=== PATIENT | female | born 1960 | race Caucasian/White ===

== ENCOUNTER 2024-07-29 21:46 | Emergency (ER) | payer OTHER, SELFPAY ==
[2024-07-29 21:50] VITALS: BP 156/93; PULSE 75; RESP 18; TEMP 36.8; O2SAT 99; BMI 24.0
--- NOTE | 2024-07-29 21:59 | CRLHL7_ITS ---
For Patients: As a result of the Century Cures Act, medical imaging exams and procedure reports are released immediately into your electronic medical record. You may view this report before your referring provider. If you have questions, please contact your health care provider. INDICATION: Trauma, fall. TECHNIQUE: CT head without contrast. COMPARISON: None. FINDINGS: CSF spaces: Within normal limits for age. Brain parenchyma: The avila-white differentiation is maintained. No sign of mass, hemorrhage, or midline shift. Skull base and calvarium: The visualized paranasal sinuses and mastoid air cells demonstrate no acute or significant findings. The visualized orbits are grossly unremarkable. No skull fractures. Left frontal scalp and periorbital hematoma. IMPRESSION: 1. No acute intracranial abnormality. 2. Left frontal scalp and periorbital hematoma. No acute calvarial fracture. Please note that all CT scans at this facility use dose modulation, iterative reconstruction, and/or weight-based dosing when appropriate to reduce radiation dose to as low as reasonably achievable. Dictated by Kenji Maurer MD @ 07/29/2024 10:40:41 PM (Electronically Signed)
[2024-07-29] MEDS: LIDOCAINE 1 % PF 30 ML INJECTION ×2 (22:05→22:20)
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
[2024-07-29 22:46] VITALS: BP 148/85; PULSE 71; RESP 18; TEMP 36.8; O2SAT 99
[2024-07-29 22:47] VITALS: BP 148/85; PULSE 71; RESP 18; TEMP 36.8
--- OUTSIDE RECORDS SUMMARY | 2024-07-29 22:50 | XMS_ITS | Clinical Summary ---
Author Organization [facility] Address [address] [place] [id number] Care Team Providers Care Design Editor Name Role Phone Unavailable Primary Care Provider Unavailabl e Social History Tobacco Use Types Packs/Day Years Used Date Smoking Tobacco: Never Assessed Comments Unknown Sex and Gender Information Value Date Recorded Sex Assigned at Not on file Legal Sex Female 7:11 PM CDT Gender Identity Not on file Sexual Orientation Not on file Last Filed Vital Signs Vital Sign Reading Time Taken Comments Blood Pressure - - Pulse - - Temperature - - Respiratory Rate - - Oxygen Saturation - - Inhaled Oxygen Concentration - - Weight 65.9 kg (145 lb 3.2 oz) 02/11/2024 10:35 AM CDT Height - - Body Mass Index - - Plan of Treatment Health Maintenance Due Date Last Done Comments CT Colonography 1959 FIT-DNA 1959 Pap Smear 1959 Sigmoidoscopy 1959 iFOBT 1959 COVID-19 Vaccine ( season) 2023 03/11/2023, 11/14/2021, 02/21/2021, Additional history exists Influenza Vaccine (#1) 2023 , 02/15/2022, 02/21/2021, Additional history exists Mammogram 08/07/2024 08/08/2023, 07/27, 08/07/2022, Additional history exists DTaP,Tdap,and Td Vaccines (3 - Td or Tdap) 04/05/2026 04/05/2016, 02/24/2006, 12/22/2002, Additional history exists Colonoscopy 11/01/2026 11/01/2016 Colorectal Cancer Screening 11/01/2026 Zoster Vaccines Completed 08/04/2020, 02/26, 05/17/2013 Pneumococcal Vaccine: 50+ Years Completed 01/04/2022, 07/15/2011 Pneumococcal Vaccine: Pediatrics (0 to 5 Years) and At-Risk Patients (6 to 49 Years) Aged Out 01/04/2022, 07/15/2011 No longer eligibl e based on patient's age to complete this topic HPV Vaccines Aged Out No longer eligi ble based on patient's age to complete this topic
--- OUTSIDE RECORDS SUMMARY | 2024-07-29 22:52 | XMS_ITS | Encounter Summary ---
Author Organization [facility] Address [address] [place] [address] Care Team Providers Care Examination Grader Name Role Phone Lilliam Ryan M.D. Primary Care Provider Encounter Details Date Type Department Care Team (Late st Contact Info) Description 03/01/2009 Historical Ophthalmology RST OPH Beau Valero O.D., Ph.D. Social History Tobacco Use Types Packs/Day Years Used Date Smoking Tobacco: Never Assessed Comments Unknown Sex and Gender Information Value Date Recorded Sex Assigned at Female 09/16/2017 3:29 PM CDT Legal Sex Female 7:11 AM INSULATION HOSEMAN Gender Identity Female 09/16/2017 3:29 PM CDT Sexual Orientation Straight 09/16/2017 3: 29 PM CDT documented as of this encounter Progress Notes * Beau Valero O.D., Ph.D. - 03/01/2009 5:36 PM CST Eye General CHIEF COMPLAINT General exam HISTORY OF PRESENT ILLNESS Currently wears spectacles, progressive, they are from 2004. Reports some near blur. 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 Also uses OTC readers. Reports no pain, flashing lights or diplopia. Occasional floaters, no new shapes. Reports migraines. IMPRESSION / REPORT / PLAN #1 Refractive error (hyperopic astigmatism, presbyopia) Rx #2 given. DIAGNOSIS #1 Refractive error (hyperopic astigmatism, presbyopia) CDM Reports - EYEGEN Id: [id number] Status: Fnl documented in this encounter Plan of Treatment Upcoming Encounters Date Type Department Care Team (Late st Contact Info) Description 08/09/2024 11:50 AM CDT Appointment Department of Radiology in [place], [place] [address] [place] [phone] Lilliam Ryan M.D. [address] [place] [phone] documented as of this encounter Visit Diagnoses Not on filedocumented in this encounter Additional Health Concerns Infection Onset Date Last Indicated Resolved Time COVID19 Pending 03/08/2021 03/08/2021 03/08/2021 1 0:51 PM INSULATION HOSEMAN COVID19 Pending 03/17/2021 03/17/2021 03/18/2021 9 :45 AM INSULATION HOSEMAN documented as of this encounter Care Teams Examination Grader Relationship Specialty Start Date End Date Lilliam Ryan M.D. [address] [place] [phone] PCP - General Family Medicine 05/29/16 documented as of this encounter
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
--- OUTSIDE RECORDS SUMMARY | 2024-07-29 22:52 | XMS_ITS | Encounter Summary ---
Author Organization [facility] Address [address] [place] [address] Care Team Providers Care Motor Electrician Name Role Phone Lilliam Ryan M.D. Primary Care Provider Encounter Details Date Type Department Care Team (Late st Contact Info) Description 11/13/2007 Historical Ophthalmology RST OPH Neisha Joshi M.D. [address] [facility] [place] [phone] Social History Tobacco Use Types Packs/Day Years Used Date Smoking Tobacco: Never Assessed Comments Unknown Sex and Gender Information Value Date Recorded Sex Assigned at Female 09/16/2017 3:29 PM CDT Legal Sex Female 7:11 AM STEAMFITTER Gender Identity Female 09/16/2017 3:29 PM CDT Sexual Orientation Straight 09/16/2017 3: 29 PM CDT documented as of this encounter Progress Notes * Neisha Joshi M.D. - 11/13/2007 8:30 AM CDT Eye General CHIEF COMPLAINT Stye HISTORY OF PRESENT ILLNESS Stye right eye for 2 1/2 weeks. Pain right eye. Constant for 2 1/2 weeks. Pain level is 1-2/10. Shetried warm compress and that helped for a while. Came to a head and burst, swelling is improved butis persisting. Bump in eyelid that scratches eye when she blinks. No changes in vision noted. IMPRESSION / REPORT / PLAN #1 chalazion Warm compresses, eyelid hygiene. Discussed I/D option: recommend treating with conservative therapies at this time. RTC if eyelid becomes more erythematous, edematous or tender. RTC in 1 month if no improvement, and if I/D desired. Examined and discussed with Dr. Mart. DIAGNOSIS #1 chalazion CDM Reports - EYEGEN Id: [id number] Status: Fnl documented in this encounter Plan of Treatment Upcoming Encounters Date Type Department Care Team (Late st Contact Info) Description 08/09/2024 11:50 AM CDT Appointment Department of Radiology in [place], [place] [address] [place] [phone] Lilliam Ryan M.D. [address] [place] [phone] documented as of this encounter Visit Diagnoses Not on filedocumented in this encounter Additional Health Concerns Infection Onset Date Last Indicated Resolved Time COVID19 Pending 03/08/2021 03/08/2021 03/08/2021 1 0:51 PM STEAMFITTER COVID19 Pending 03/17/2021 03/17/2021 03/18/2021 9 :45 AM STEAMFITTER documented as of this encounter Care Teams Motor Electrician Relationship Specialty Start Date End Date Lilliam Ryan M.D. [address] [place] [phone] PCP - General Family Medicine 05/29/16 documented as of this encounter
--- OUTSIDE RECORDS SUMMARY | 2024-07-29 22:52 | XMS_ITS | Encounter Summary ---
Author Organization [facility] Address [address] [place] [address] Care Team Providers Care Cash Surrender Calculator Name Role Phone Lilliam Ryan M.D. Primary Care Provider Encounter Details Date Type Department Care Team (Late st Contact Info) Description 07/19/2002 Historical Ophthalmology RST OPH Kuldeep Andrea O.D. [address] [place] [phone] Social History Tobacco Use Types Packs/Day Years Used Date Smoking Tobacco: Never Assessed Comments Unknown Sex and Gender Information Value Date Recorded Sex Assigned at Female 09/16/2017 3:29 PM CDT Legal Sex Female 7:11 AM ASSOCIATE PROFESSOR OF ANTHROPOLOGY Gender Identity Female 09/16/2017 3:29 PM CDT Sexual Orientation Straight 09/16/2017 3: 29 PM CDT documented as of this encounter Progress Notes * Kuldeep Andrea O.D. - 07/19/2002 12:00 AM CST Eye General CHIEF COMPLAINT Blurred vision HISTORY OF PRESENT ILLNESS Mild decrease in distance vision for the past 6 months. Difficulty with very fine print. Occasionally wears OTC readers. Wore glasses during high school for astigmatism correction. No discomfort tearing, or discharge OU. Notes a bump inside RUL or on the eye. Has noticed it for the past month, nochange in size. DIAGNOSIS #1 Refractive error (myopia, presbyopia). Plan: spectacle prescription (Refraction 1) given, progressive-addition spectacle recommended. CDM Reports - EYEGEN Id: [id number] Status: Fnl documented in this encounter Plan of Treatment Upcoming Encounters Date Type Department Care Team (Late st Contact Info) Description 08/09/2024 11:50 AM CDT Appointment Department of Radiology in [place], [place] [address] [place] [phone] Lilliam Ryan M.D. [address] [place] [phone] documented as of this encounter Visit Diagnoses Not on filedocumented in this encounter Additional Health Concerns Infection Onset Date Last Indicated Resolved Time COVID19 Pending 03/08/2021 03/08/2021 03/08/2021 1 0:51 PM ASSOCIATE PROFESSOR OF ANTHROPOLOGY COVID19 Pending 03/17/2021 03/17/2021 03/18/2021 9 :45 AM ASSOCIATE PROFESSOR OF ANTHROPOLOGY documented as of this encounter Care Teams Cash Surrender Calculator Relationship Specialty Start Date End Date Lilliam Ryan M.D. [address] [place] [phone] PCP - General Family Medicine 05/29/16 documented as of this encounter
--- OUTSIDE RECORDS SUMMARY | 2024-07-29 22:53 | XMS_ITS | Encounter Summary ---
Author Organization [facility] Address [address] [place] [address] Care Team Providers Care Track Leader Name Role Phone Lilliam Ryan M.D. Primary Care Provider Encounter Details Date Type Department Care Team (Latest Contact Info) Description 07/27/2024 3:55 PM CDT Ancillary Procedure Department of Otorhinolaryngology Arrived Social History Tobacco Use Types Packs/Day Years Used Date Smoking Tobacco: Former Cigarettes 0.8 45 Q uit: 03/01/2024 Passive Smoke Exposure: Never Smokeless Tobacco: Never Alcohol Use Standard Drinks/Week Comments Not Currently 0 (1 standard drink = 0.6 oz pur e alcohol) [facility] Utilities Answer Date Recorded In the past 12 months has [facility] [employer], gas, oil, or water [employer] threatened to shut off services in your home? No 07/27/2023 Humiliation, Afraid, Rape, and Kick questionnair e Answer Date Recorded Within the last year, have y ou been afraid of your partner or ex-partner? No 09/20/2022 Within the last year, have y ou been humiliated or emotionally abused in other ways by your partner or ex-partner? No Within the last year, have y ou been kicked, hit, slapped, or otherwise physically hurt by your partner or ex-partner? No 09/20/2022 Within the last year, have y ou been raped or forced to have any kind of sexual activity by your partner or ex-partner? No 09/20/2022 Social Connection and Isolat ion Panel [NHANES] Answer Date Recorded In a typical week, how many times do you talk on the phone with family, friends, or neighbors? Three times a week 05/23/2022 How often do you get togethe r with friends or relatives? Twice a week 05/23/2022 How often do you attend chur ch or advent services? More than 4 times per year 05/23/2022 Do you belong to any clubs o r organizations such as tenriism groups, unions, fraternal or athletic groups, or school groups? Yes 05/23/2022 How often do you attend meet ings of the clubs or organizations you belong to? Never 05/23/2022 Are you , , di vorced, , never , or living with a partner? 05/23/2022 AUDIT-C Answer Date Recorded Q1: How often do you have a drink containing alc ohol? Never 05/23/2022 Average Number of Drinks Not on file 023 Frequency of Binge Drinking Not on file 04/29 Overall Financial Resource Strain (CARDIA) Answe r Date Recorded How hard is it for you to pa y for the very basics like food, housing, medical care, and heating? Not hard at all 09/20/2022 PHQ-2 Answer Date Recorded PHQ-2 Score 0 06/06/2024 [facility] - Occupational Stress Questionnaire Answer Date Recorded Do you feel stress - tense, restless, nervous, or anxious, or unable to sleep at night because your mind is troubled all the time - these days? Not at all 05/23/2022 Exercise Vital Sign Answer Date Recorde d On average, how many days pe r week do you engage in moderate to strenuous exercise (like a brisk walk)? 4 days 07/22/2023 On average, how many minutes do you engage in exercise at this level? 70 min 07/22/2023 Hunger Vital Sign Answer Date Recorded Within the past 12 months, y ou worried that your food would run out before you got the money to buy more. Never true 07/27/19 24 Within the past 12 months, t he food you bought just didn't last and you didn't have money to get more. Never true 07/27/2023 PRAPARE - Transportation Answer Date Re corded In the past 12 months, has l ack of transportation kept you from medical appointments or from getting medications? No 06/28 In the past 12 months, has l ack of transportation kept you from meetings, work, or from getting things needed for daily living? No 07/27/2023 Depression Answer Date Recor ded PHQ-9 Total Score (max 27) 5 08/07 Nutrition Answer Date Recorded On average, how many serving s of fruits and vegetables do you eat per day (serving size is equal to 1 cup or approximately the size of a tennis ball)? 0-2 07/22/2023 Dental Answer Date Recorded Dental: Regular Dentist Yes 12/16/19 Employment Answer Date Recorded Employment status Retired 07/22/2023 Housing Stability Answer Date Recorded What is your living situation today? I have a [facility] place to live 07/27/2023 Education Answer Date Recorded What is the highest level of school you have completed or the highest degree you have received? Some college, no degree 05/23/2022 Comments No Sex and Gender Information Value Date Recorded Sex Assigned at Female 09/16/2017 3:29 PM CDT Legal Sex Female 7:11 AM [employer]YOR HEL[employer] Gender Identity Female 09/16/2017 3:29 PM CDT Sexual Orientation Straight 09/16/2017 3: 29 PM CDT documented as of this encounter Plan of Treatment Upcoming Encounters Date Type Department Care Team (Late st Contact Info) Description 08/09/2024 11:50 AM CDT Appointment Department of Radiology in [place], [place] [address] [place] [address] Lilliam Ryan M.D. [address] [place] [address] documented as of this encounter Procedures Procedure Name Priority Date/Time Associated Diagnosis Comments OTORHINOLARYNGOLOGY IMAGE EXAM Routine 07/27/2024 9:39 AM CDT documented in this encounter Results * ENT Procedure-Otorhinolaryngology Image Exam (07/27/2024 9:39 AM CDT) Narrative [facility] - 07/27/2024 9:39 AM CDT This order has been created and auto-finalized to support the import of images acquired without order. The clinical documentation to support these images can be found on the encounter that produced images. us Provider Not In System IMG NON RAD IMAGING PROCE DURES Final Result [facility] NA documented in this encounter Visit Diagnoses Not on filedocumented in this encounter Additional Health Concerns Assessment Noted Time PHQ-9 Depression Total Score: 5 08/08/19 21 9:41 AM CDT documented as of this encounter Care Teams Track Leader Relationship Specialty Start Date End Date Lilliam Ryan M.D. [address] [place] [address] PCP - General Family Medicine 05/29/16 documented as of this encounter
--- OUTSIDE RECORDS SUMMARY | 2024-07-29 22:53 | XMS_ITS | Encounter Summary ---
Author Organization [facility] Address [address] [place] [id number] Care Team Providers Care Hand Bindery Assembly Worker Name Role Phone Lilliam Ryan M.D. Primary Care Provider Encounter Details Date Type Department Care Team (Late st Contact Info) Description 07/16/2024 Orders Only Department of Family Medicine, [facility], in [place], [place] [address] [place] [phone] Corby Ly M.D. [address] [place] [phone] Acute Cystitis Without Hematuria Social History Tobacco Use Types Packs/Day Years Used Date Smoking Tobacco: Former Cigarettes 0.8 45 Q uit: 03/01/2024 Passive Smoke Exposure: Never Smokeless Tobacco: Never Alcohol Use Standard Drinks/Week Comments Not Currently 0 (1 standard drink = 0.6 oz pur e alcohol) [facility] Utilities Answer Date Recorded In the past 12 months has e electric, gas, oil, or water company threatened to shut off services in your [...] 05/23/2022 How often do you attend chur or jew services? More than 4 times per year 05/23/2022 Do you belong to any clubs o r organizations such as taoist groups, unions, fraternal or athletic groups, or [...] Answer Date Recorded PHQ-2 Score 0 06/06/2024 [facility] - Occupational [...] your living situation today? I have a [facility] place to live 07/27/2023 Education Answer Date Recorded What is the highest level of school you have completed or the highest degree you have received? Some college, no degree 05/23/2022 Comments No Sex and Gender Information Value Date Recorded Sex Assigned at Female 09/16/2017 3:29 PM CDT Legal Sex Female 7:11 AM [employer] Gender Identity Female 09/16/2017 3:29 PM CDT Sexual Orientation Straight 09/16/2017 3: 29 PM CDT documented as of this encounter Plan of Treatment Upcoming Encounters Date Type Department Care Team (Late st Contact Info) Description 08/09/2024 11:50 AM CDT Appointment Department of Radiology in [place], [place] [address] [place] [address] Lilliam Ryan M.D. [address] [place] [address] documented as of this encounter Visit Diagnoses Diagnosis Acute Cystitis Without Hematuria Screening Mammogram Breast Cancer documented in this encounter Additional Health Concerns Assessment Noted Time PHQ-9 Depression Total Score: 5 08/08/19 21 9:41 AM CDT documented as of this encounter Care Teams Hand Bindery Assembly Worker Relationship Specialty Start Date End Date Lilliam Ryan M.D. [address] [place] [address] PCP - General Family Medicine 05/29/16 documented as of this encounter
--- OUTSIDE RECORDS SUMMARY | 2024-07-29 22:53 | XMS_ITS | Clinical Summary ---
Author Organization [facility] Address [address] [place] [id number] Care Team Providers Care Vb Net Programmer Name Role Phone Lilliam Ryan M.D. Primary Care Provider [phone] Source Comments Patient records contain information from all sites at [facility]. For routine questions regarding patient records, call [phone] during business hours, M-F 8:00 AM - 5:00 PM Central Time. Record requests for emergency care only can be directed to [phone] at any time.[facility] Allergies Active Allergy Reactions Criticality Noted Date Comments Adhesive Other (see comments) 09/18/2020 Amoxicillin Rash 03/18/2024 Penicillin allergy skin testing was negative on 03/18/24. May use penicillins and cephalosporins. Avoid amoxicillin and ampicillin. Bupropion Hives (Reselect Reaction) 04/11/2003 Lisinopril GI intolerance 04/05/2016 pancreatitis like symptoms Sulfa (Sulfonamide Antibiotics) Hepatic Failure Medications * This document contains information received from the source organization and may not represent a complete record from that organization. acetaminophen (TYLENOL) 500 mg tablet Take 2 tablets by mouth every 6 (six) hours as needed. 7 Active diclofenac sodium (VOLTAREN) 1 % gel Apply 2 g topically 4 (four) times a day as needed. Apply to back for arthritis. 3 Active semaglutide (Wegovy) 2.4 mg/0.75 mL pen injector injectionIndica tions:Obesity Body Mass Index 30-39.9 Adult Inject 2.4 mg under the skin every 7 (seven) days. 3 mL 11 07/06/2024 10:49 AM CDT 4 08/29/19 25 Active cyclobenzaprine (FlexeriL) 10 mg tabletIndicatio ns:Pain Back Thoracic,Muscle Spasm Of Back Take 1 tablet (10 mg total) by mouth 3 (three) times a day as needed for muscle spasms. 90 tablet 1 02/12/2024 5:19 PM CDT 4 Active topiramate (Topamax) 100 mg tablet TAKE 1 TABLET BY MOUTH DAILY 100 tablet 3 06/22/2024 7:12 AM CLAIMS SUPPORT SPECIALIST 4 12/16/19 25 Active cranberry-vitam in C-mannose 250-30-50 mg tablet,chewable Chew 4 tablets daily. Active cranberry fruit (cranberry) 450 mg tablet Take 2 tablets by mouth daily. Active ascorbic acid, vitamin C, (Vitamin C) 1,000 mg tablet Take 1,000 mg by mouth 3 (three) times a day. Active verapamiL (Calan-SR) 240 mg ER tablet TAKE 1 TABLET BY MOUTH DAILY 90 tablet 3 04/17/2024 6:39 AM CLAIMS SUPPORT SPECIALIST 4 Active rosuvastatin (Crestor) 10 mg tablet TAKE 1 TABLET BY MOUTH DAILY 90 tablet 3 06/02/2024 10:59 AM CLAIMS SUPPORT SPECIALIST 4 Active losartan (Cozaar) 50 mg tabletIndicatio ns:Hypertension Essential Primary,Hypokal emia TAKE 1 TABLET BY MOUTH DAILY 90 tablet 3 06/02/2024 10:59 AM CLAIMS SUPPORT SPECIALIST 4 Active pregabalin (Lyrica) 150 mg capsuleIndicati ons:Pain Back Thoracic Take 1 capsule (150 mg total) by mouth 2 (two) times a day. 180 capsule 2 06/02/2024 10:59 AM CLAIMS SUPPORT SPECIALIST 4 Active DULoxetine (Cymbalta) [address] capsuleIndicati ons:Pain Back Thoracic Take 1 capsule (60 mg total) by mouth daily. 90 capsule 3 05/11/2024 1:26 PM CLAIMS SUPPORT SPECIALIST 5 Active DULoxetine (Cymbalta) [address] capsuleIndicati ons:Neuralgia Intercostal Take 1 capsule (30 mg total) by mouth daily with 60mg for a total of 90mg 90 capsule 3 05/11/2024 1:26 PM CLAIMS SUPPORT SPECIALIST 5 Active methenamine (Hiprex) 1 gram tabletIndicatio ns:Cystitis Recurrent Take 1 tablet (1 g total) by mouth 2 (two) times a day. 180 tablet 06/03/2024 12:59 PM CLAIMS SUPPORT SPECIALIST 5 Active estradioL (Estrace) 0.1 mg/g (0.01%) vaginal cream Insert 1 g into the vagina 2 (two) times a week. 42.5 g 6 06/04/2024 1:31 PM CLAIMS SUPPORT SPECIALIST 5 Active nitrofurantoin monohydrate (Macrobid) 100 mg capsuleIndicati ons:Acute Cystitis Without Hematuria Take 1 capsule (100 mg total) by mouth 2 (two) times a day. 10 capsule 07/19/2024 11:21 AM CDT 5 Active nitrofurantoin monohydrate (Macrobid) 100 mg capsuleIndicati ons:Acute Cystitis Without Hematuria Take 1 capsule (100 mg total) by mouth 2 (two) times a day. 10 capsule 06/25/2024 4:00 PM CLAIMS SUPPORT SPECIALIST 5 07/17/19 25 Discontinu ed(Reorder ) Active Problems Problem Noted Date Diagnosed Date Acute Serous Otitis Media Recurrent Right 2024 Overview (06/08/2024): 06/08/2024: Presents for evaluation of recurrent right ear pain. Was treated in March for an otitis externa and a subsequent otitis media with ofloxacin, hydrocortisone, and cefdinir. Symptoms had improved. However, last but she had some dental work and following that she had return of the right ear pain. The pain radiates down to her teeth. She does not have any pain to the gums, no sinus facial tenderness, no difficulty with chewing or swallowing. She does not note any changes to her hearing. Denies any recent illnesses or fevers. She denies any otorrhea. She does not note mild dizziness but this has improved. Assessment & Plan (06/08/2024 2:45 PM CLAIMS SUPPORT SPECIALIST): Plan: Upon examination of the ear, there is suspicion for recurrent serous otitis media versus myringitis. Given how severe her symptoms are and her chronic perforation, proceeded to treat with a 7 day course of ofloxacin drops empirically. Could another course of cefdinir if symptoms do not improve. Provided her with a referral to ENT for further evaluation given her symptoms are recurrent. Discussed strict return precautions for urgent evaluation. She is in agreement with this plan and will follow back with any concerns. Neuralgia Intercostal 05/18/2024 Otitis Externa Acute Right 04/20/2024 Overview (04/20/2024): 04/20/2024: Reports 2 weeks of right-sided ear pain. Symptoms at onset with pain radiating to the jaw, had assumed symptoms may have been due to a tooth infection. She had gone to the dentist and had ruled out an infection. Symptoms had continued to progress, had less jaw pain and more focal right ear pain. Pain is worse when she is laying down or when she is chewing on that side. She denies any drainage from the ear, changes to her hearing, any tenderness to the mastoid region, fevers, chills, recent illnesses or sick contacts. Assessment & Plan (04/20/2024 11:14 AM CLAIMS SUPPORT SPECIALIST): Plan: Patient assessed in conjunction with Luke Ramirez APRN, CNP. Symptoms and presentation seem consistent with otitis externa. Proceeded to treat with 7 day course of ofloxacin and hydrocortisone drops. Ear wick placed in clinic today for patient comfort as well, discussed that she should apply the ear drops over the ear wick, should allow it to come out on its own or can remove after 3 days. Discussed home treatments for symptom management. Discussed strict return precautions for urgent evaluation. She is in agreement with this plan will follow back with any concerns. Chronic Migraine Without Aur a Not Intractable Without Status Migrainosus 04/08/2024 Allergy Penicillin Antibiotic Personal History 1 05/18/2023 Hammer Toe Acquired Left 03/03/2024 Cystitis Recurrent 09/09/2023 Overview (11/25/2023): 09/09/2023: Presents with recurrent cystitis symptoms That started last night with chills, urgency, increased urination, pelvic discomfort, and pain and burning with urination. Denies any flank pain, nausea, vomiting, or other systemic symptoms. Recently completed 2 courses of treatment for UTI in the past month- 08/09/2023: Treated with a 5 day course of Macrobid for UTI via E visit, no urinalysis or culture completed. 08/19/2023: Symptoms of UTI returned, culture grew Enterococcus faecalis, treated with 10 day course of Cipro as she had uncomfortable GI symptoms with previous Macrobid course. Current symptoms have presented about week and a half after completing last course of antibiotics. 09/20/2023 completed Macrobid antibiotic 5-20 with resolution of symptoms. Symptoms returned 2 days ago with dysuria, malaise, chills. Had been sexually active prior to this UTI. Uses estradiol but applies to vagina only. History of elevated fasting glucose and glucosuria. Plan: Recommended applying estradiol to the urethra. Treat with Macrobid. Await urinalysis and culture. Rule out diabetes as cause of recurrent UTI. If UTIs continue to be linked to intercourse may benefit from postcoital antibiotic. If has an additional UTI may benefit from CT to verify stone is not contributing to recurrent UTI. 11/25/2023: Presents with recurrent UTI symptoms. Most recently treated for UTI on 11/18/2023, completed antibiotics two days ago and symptoms had resolved. Yesterday morning, she had onset of urine frequency, urgency, burning with urination, and pelvic discomfort. Endorses feeling unwell since this previous episode had started. Started Hiprex 1 month ago, uses PRN Azo, continues topical estrogen. DM was ruled out. Assessment & Plan (06/25/2024 4:34 PM CLAIMS SUPPORT SPECIALIST): Discuss possible methods to avoid future infections. She is already on a good program but she may want to consider the supplement Shaw Assessment & Plan (11/25/2023 4:18 PM CDT): Plan: Dipstick positive in clinic today, suspect another recurrent cystitis which makes this her 7th UTI in 3 months. Treated empirically with 7 day course of Macrobid, will adjust appropriately based off of culture results. Reviewed case with assistant gm of content & delivery ID and Urology, no new recommendations apart from continuing current regimen and treating symptomatically, do not recommend prophylactic treatments. ID recommended adding D-Mannose, stated that she has only been using Hiprex for only short amount of time and may take some time before she notes benefit. Overuse of antibiotics may also have been leading to some antibiotic drug resistance so they recommended trying to space out abx use if able unless symptoms require treatment. Will obtain CT Urogram to eval for any underlying cause for recurrent UTI, she shares that she has 3 ureters which could be causing some form of reflux. Reinforced UTI prevention and management. She will follow back with any concerns in the interim. Assessment & Plan (09/09/2023 4:14 PM CDT): Plan: Dipstick shows large leukocytes and positive nitrites, suspect that she has having a recurrent UTI. Low suspicion of pyelonephritis at this time. Given symptoms and results , proceeded to treat empirically with a 7 day course of Macrobid. Discussed that a ciprofloxacin was not a first-line treatment for recurrent cystitis and hopefully this will help resolve symptoms. If symptoms continue to persist despite this treatment, can consider referral to Urology. Given previous GI symptoms, given script for Zofran which was helpful previously. Pending cultures, will adjust antibiotics accordingly. Reviewed strict return precautions in the interim and home treatments for symptom management. She is in agreement with this plan and will follow back with any concerns. Pain Neck Mechanical 06/03/2023 Abnormal Uterine And Vaginal Bleeding Unspecifie d 03/11/2023 Overview (03/11/2023): 03/11/2023: Noted vaginal bleeding for 3 days on 02/21-02/24. Had bright red blood when she inserted tampon into vagina, does not endorse significant bleeding however. Has not had bleeding since, has never had an incidence like this before since having her subtotal hysterectomy in 2002. Occasionally has blood in her urine with UTI's but denies urinary symptoms, bleeding was vaginal in this instance. Endorses abdominal and pelvic discomfort, mostly RLQ, changes in appetite: feeling eastman faster and decreased appetite, and bloating for past 2-3 months. Denies any changes in bowel habits or dyspareunia. History of smoking, obesity, lost 60 lbs in past 1 1/2 years on Wegovy. Family history of breast cancer. 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 Assessment & Plan (03/21/2023 9:27 AM CLAIMS SUPPORT SPECIALIST): Plan: Discussed case and plan with Jack Simon MD. Pelvic exam done in clinic, pap smear obtained for cervical cytology evaluation. Right ovary enlarged and palpable on bimanual exam. Orders placed for pelvic US, will contact patient with results. Her postmenopausal bleeding could be concerning for sinister causes such as endometrial or cervical cancer, other differential is vaginal atrophy. Pending US and pap smear results, consider biopsy and Chemical Technician referral for further eval. Should contact team with other episodes of bleeding. Should present for emergent evaluation if she experiences heavy bleeding soaking 1 pad per hour. She is in agreement with this plan and will follow back with any concerns in the interim. Overweight Body Mass Index 25-29.9 Adult 023 Pain Back Thoracic 03/09/2021 Cyst Sebaceous 01/25/2021 Overview (01/25/2021): 01-24-21: Right neck cyst present for years, occasional thick white discharge, increased in size. Left upper thoracic there was a nodule for 1 month treated with warm compresses, now decreased in size. Also had a tree branch hit left shoulder with a small penetrative stick 1 month ago. Self removed. PLAN Scarring present and well healed over area that had penetrative stick. Inflamed nodule now resolved, unable to feel cell wall under. Unsure if this was an inflamed cyst that ruptured, infected bug bite, or nodule acne spot. Reassured. If returns, proceed with I & D if infected. Otherwise, return for sebaceous cyst removal if campuzano reform. Acne Comedone 01/25/2021 Overview (01/25/2021): 01-24-21: Continues to get acne despite using neutrogena and proactive. Primarily on face and chest. Occasionally on back. Used retin-A in past but dried skin. PLAN: discussed acne treatment. Interested in using Duac. Discussed gentle face/body rash. Notify provider if not improving. Pain Right Upper Quadrant 09/18/2020 Overview (09/18/2020): 09/18/20 Meeting for the first time today. 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 Mrs. Lindsay is a 59-year-old female with abdominal surgical history of hysterectomy, medical history hypertension, chronic fatigue, nicotine dependence, obesity on phentermine, hyperlipidemia, impaired fasting glucose, and diverticulitis. Here for right upper abdominal pain 3/10, constant, which wraps to the mid-back, a general feeling of unwell with nausea last week, feeling warm with temp <100. Symptoms most pronounced the last week, although she had a self-limited 1-hour episode of RUQ sharp pain when she bent forward to clean a room a month ago. Eating okay, though fatty foods trigger the pain. Bowel and bladder functioning normally. Thought her back pain was acting up, but this feels different. Plan: Most consistent with biliary colic. She is vitally stable and can be evaluated as an outpatient. Laboratory and RUQ ultrasound. Report to ED if pain worsening, develop fever, or unable to eat/drink. Avoid high-fat foods if these trigger pain. May try Tums PRN if she develops heartburn. Obesity Body Mass Index 30-39.9 Adult 04/25/2020 Overview (09/18/2020): Current use of phentermine 15 mg twice daily. Body mass index is 35.42 kg/m . Hematuria Urinalysis 05/06/2017 Fatigue Chronic 04/22/2017 Loss Memory Subjective 04/22/2017 Diverticulitis Colon 08/18/2016 Hyperlipidemia 06/12/2016 Overview (04/03/2020): Rosuvastatin initiated 04/03/2020 Impaired Fasting Glucose 06/12/2016 Vertigo Benign Paroxysmal Positional Right 04/03 Fasciitis Plantar 11/26/2015 Mass Adrenal 06/28/2014 Overview (02/10/2020): Noted incidentally on CT in 2014 She had normal dexamethasone suppression test. 24 hour urine tests that showed normal metanephrines but mildly elevated norepinephrine levels Please see Endocrinology e-consult 08/10/2014 Follow with every-other year CT scan. Consider repeat hormonal testing if clinical suspicion is high. 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 Has had previous success quitting with Chantix. Willing and wanting to try again. PLAN: Chantix ordered. Loss Hearing Conductive Tympanic Membrane 2004 Resolved Problems Problem Noted Date Diagnosed Date Resolved Date Pain Breast 05/17/2019 04/03/2020 Overview (05/17/2019): 05/17/2019 Starting 05/08/2019, pain around nipple. Pain is constant and does not get better or worse, 3/10, has been taking ibuprofen and using ice which decreases to 1/10. Describes as a soreness. No nipple discharge, no skin changes, no dimpling, no lumps, no fever. No history of mastitis, breast tenderness. No changes in activity new exercises or injury noted; doesn't seem to get worse when she uses her arm. Menopausal but does have hot flashes, does not take any hormones or OTC/herbal medications for this. In 2018 complained of a burning pain, but this resolved spontaneously. Has some redness that has been diagnosed as dermatitis. Previous biopsy in 2002, Last preventative mammogram 05/2018- neg. Mother with breast Ca diagnosed in her mid 70's. Right nipple less flat than normal. PLAN: Mammography of right breast with US. Conservative measures such as primrose, vitamin E, supportive bras, and cold packs discussed. Pain Elbow Left 06/01/2018 04/03/2020 Overview (06/01/2018): 06/01/2018 Last week, slipped on the ice, hitting left elbow and head (no LOC). Elbow has been edematous and ecchymosis. Mild tingling. Using tylenol. Normal range of motion. PLAN; xray normal, declined brace. Notify provider if not continuing to improve. Perforation Tympanic Membran e Personal History 06/01/2018 04/03/2020 Overview (06/01/2018): 06/01/2018 History of perforated TM 2-3 years ago. Today right ear drum is perforated, had a recent URI with some ear pressure. PLAN: return in 1 month to verify eardrum is healing. Pain Thoracic Myofascial 12/09/201710/2019 Hemorrhage Conjunctival Subconjunctival Left 8 04/03/2020 Adenoma Adrenal 08/10/2014 02/10/2020 Elevated Calcium Serum 06/02/201404/03 Fibrocystic Breast Bilateral 01/06/2006 04/03/2020 Encounters Date Type Department Care Team Description 07/27/2024 3:55 PM CDT Ancillary Procedure Department of Otorhinolaryngology Arrived 07/27/2024 9:00 AM CDT Comprehensive Visit Department of Otorhinolaryngology in [place], [place] [address] [place] [phone] Florentin Bustamante M.D. Loss Hearing Conductive Tympanic Membrane (Primary Dx); Perforation Tympanic Membrane Right 07/19/2024 8:00 AM CDT Comprehensive Visit Department of Otorhinolaryngology in [address] [phone] Mary Beth Clancy, MPAS, P.A.-C. Perforation Tympanic Membrane Right (Primary Dx); Acute Serous Otitis Media Recurrent Right 07/16/2024 Orders Only Department of Family Medicine, [facility], in [place], [place] [address] [place] [address] Corby Ly M.D. Acute Cystitis Without Hematuria 07/06/2024 Results Follow-Up Department of Family Medicine, [facility], in [place], [place] [address] [place] [phone] Lilliam Ryan M.D. Urinalysis, with Microscopic: Urine, Midstream, Microscopic Automated, pH, Urine, Additional followed-up results: 2 07/05/2024 12:10 PM CDT - 07/05/2024 11:59 PM CDT Hospital Encounter Department of Laboratory Medicine and Pathology, [facility], in [address] [phone] Maria Isabel Almaraz APRN, C.N.P., M.S. Symptom Urinary Discharge Disposition: Home or Self Care 07/05/2024 11:00 AM CDT Diagnostic Department of Otorhinolaryngology in [address] [phone] Mary Beth Clancy, MPAS, P.A.-CNikole Garcia Au.D. Conductive Hearing Loss Unilateral Right Ear With Unrestricted Hearing On The Contralateral Side (Primary Dx); Acute Serous Otitis Media Recurrent Right 07/02/2024 6:30 PM CLAIMS SUPPORT SPECIALIST E-Visit [facility] [address] [place] [phone] Odalys Barton APRN C.N.P., M.S.N. Express Care Online for Bladder Infection (female anatomy, age 12-65 years) 07/02/2024 Patient Self-Triage [facility] Symptom Book Trimmer, Provider 07/02/2024 Clinical Communication Department of Family [facility], [facility] in [address] [phone] Lilliam Ryan M.D. Med Question 06/29/2024 2:00 PM CLAIMS SUPPORT SPECIALIST Office Visit Department of Obstetrics and Gynecology in [address] [phone] Ana Mckeon APRN, C.N.P., D.N.P. Pap Smear Examination (Primary Dx) 06/28/2024 2:00 PM CLAIMS SUPPORT SPECIALIST Clinical Communication Virtual Review in [address] [phone] Pre-visit Intake 06/25/2024 3:30 PM CLAIMS SUPPORT SPECIALIST Office Visit Department of [facility], [facility], in [address] [phone] Corby Ly M.D. Acute Cystitis Without Hematuria (Primary Dx); Cystitis Recurrent 06/24/2024 12:40 PM CLAIMS SUPPORT SPECIALIST E-Visit [facility] [address] [place] [phone] Ruma Kim APRN, C.NCorbinPCorbin [facility] Online for Bladder Infection (female anatomy, age 12-65 years) 06/24/2024 Patient Self-Triage [facility] Symptom Book Trimmer, Provider 06/11/2024 Orders Only Department of Otorhinolaryngology in [place], [place] [address] [place] [phone] Mary Beth Clancy MPAS PCorbinA.-C. Acute Serous Otitis Media Recurrent Right (Primary Dx) 06/10/2024 Clinical Communication Department of Otorhinolaryngology in [address] [phone] Mary Beth Clnacy MPAS P.A.-C. Order Request 06/10/2024 Results Follow-Up Department of Obstetrics and Gynecology in [address] [phone] Ana Mckeon APRN, C.N.P., D.N.P. ThinPrep w/HPV Co-Test Screen, Physician Interpretation Screen 06/08/2024 2:00 PM CLAIMS SUPPORT SPECIALIST Office Visit Department of Family [place], [place] [address] [place] [phone] Zo Riggs APRN, C.N.P., D.N.P. Acute Serous Otitis Media Recurrent Right (Primary Dx) 06/06/2024 Patient Self-Triage [facility] Symptom Book Trimmer, Provider 06/02/2024 11:00 AM CLAIMS SUPPORT SPECIALIST Office Visit Department of Obstetrics and Gynecology in [address] [phone] Ana Mckeon APRN C.N.P., D.N.P. Pap Smear Examination (Primary Dx) 06/01/2024 Refill Department of [facility], [facility], in [place], [place] [address] [place] [phone] Corby Ly M.D. Med Refill 05/24/2024 Results Follow-Up Division of Pain Medicine in [place], [place] [address] [place] [phone] Anna Damon APRN, C.N.PCorbin, D.N.P. DX Thoracic Spine 2 Views 05/21/2024 12:53 PM CLAIMS SUPPORT SPECIALIST - 05/21/2024 11:59 PM CLAIMS SUPPORT SPECIALIST Hospital Encounter Division of Pain Medicine in [place], [place] [address] [place] [phone] Odalys Saldana APRN, C.N.P. 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 Follow Up Examination Postoperative Visit (Primary Dx) 05/20/2024 1:10 PM CLAIMS SUPPORT SPECIALIST - 05/20/2024 11:59 PM CLAIMS SUPPORT SPECIALIST Hospital Encounter Department of Radiology, [facility], in [place], [place] [address] [place] [phone] Anna Damon APRN, C.N.PCorbin, D.N.P. 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 05/08/2024 Refill Division of Pain Medicine in [place], [place] [address] [place] [phone] Anna Damon, PRIYA, C.N.P., D.N.P. Med Refill from Last 3 Months Immunizations Immunization Administration Dates Next Due HZV (ZOSTAVAX) 05/17/2013 HepB, Unspecified 09/18/1993,04/02/1993,01/25/19 93 Influenza, Unspecified 03/02/2001,1999,01/29/1999,1997,02/04/1996,03/14/1995 MMR 09/29/1990,08/07/1990 OPV 04/28/1964 PCV20 01/04/2022 PPSV23 07/15/2011 RZV (SHINGRIX) 08/04/2020,03/12/2020 SARS-COV-2 (COVID-19) - MODE RNA (12 YEARS AND OLDER) Fall Seasonal 03/08/2024,03/11/2023,02/19/2023(Deferr ed: Patient decision - doesn't want to do covid and flu at the same time) SARS-COV-2 (COVID-19) - MODERNA(Discontinued) 11/14/2021,02/21/2021,07/13/2020,2020 Td (Adult), adsorbed 12/22/2002 Td Preservative Free (TENIVA C, DECAVAC) 04/05/2016 Td, (Adult) Unspecified 08/16/1990 Tdap 02/24/2006 influenza trivalent vaccine (6 months and older)(PF) 03/05/2024,02/27/2013 influenza vaccine quad (FLUZONE/FLUARIX) (6 months and older)(PF) 02/19/2023,02/15/2022,02/21/2021,2019,02/23/2019,02/25/2018,02/20/2017,1 ,03/01/2015,02/15/2014 Family History Medical History Relation Name Comments Alcohol abuse Brother 1 Connor Abbott Coronary artery disease Brother 1 Connor Yerhot Depression Brother 1 Connor Yerhot Hypertension Brother 1 Connor Yerhot Suicide Attempts Brother 1 Connor Yerhot Alcohol abuse Brother 2 Rodrigo Yerhot Hypertension Brother 3 Ford Yerhot Alcohol abuse Brother 4 Connor Yerhot Coronary artery disease Brother 4 Connor Yerhot Depression Brother 4 Connor Yerhot Hypertension Brother 4 Connor Yerhot Suicide Attempts Brother 4 Connor Yerhot Alcohol abuse Brother 5 Rodrigo Yerhot Hypertension Brother 6 Ford Yerhot Alcohol abuse Father 1 Ash Yerhot Coronary artery disease Father 1 Ash Yerhot Hyperlipidemia Father 1 Ash Yerhot Hypertension Father 1 Ash Yerhot Lung cancer Father 1 Ash Yerhot Alcohol abuse Father 2 Ash Yerhot Coronary artery disease Father 2 Ash Yerhot Hyperlipidemia Father 2 Ash Yerhot Hypertension Father 2 Ash Yerhot Lung cancer Father 2 Ash Yerhot Other cancer Maternal Grandmother 1 Eloisa Bitker li noah cancer Other cancer Maternal Grandmother 2 Eloisa Bitker li noah cancer Arthritis Mother 1 Heidi Yerhot Breast cancer Mother 1 Heidi Yerhot Coronary artery disease Mother 1 Heidi Yerhot Dementia Mother 1 Heidi Yerhot Depression Mother 1 Heidi Yerhot Hyperlipidemia Mother 1 Heidi Yerhot Hypertension Mother 1 Heidi Yerhot Migraines Mother 1 Heidi Yerhot Stroke Mother 1 Heidi Yerhot Thyroid disease Mother 1 Heidi Yerhot Arthritis Mother 2 Heidi Yerhot Breast cancer Mother 2 Heidi Yerhot Coronary artery disease Mother 2 Heidi Yerhot Dementia Mother 2 Heidi Yerhot Depression Mother 2 Heidi Yerhot Hyperlipidemia Mother 2 Heidi Yerhot Hypertension Mother 2 Heidi Yerhot Migraines Mother 2 Heidi Yerhot Stroke Mother 2 Heidi Yerhot Thyroid disease Mother 2 Heidi Yerhot Alcohol abuse Sister 1 Cassandra Seegmiller Hypertension Sister 1 Cassandra Seegmiller Hypertension Sister 2 Kathy George Alcohol abuse Sister 3 Cassandra Seegmiller Hypertension Sister 3 Cassandra Seegmiller Hypertension Sister 4 Kathy George Alcohol abuse Son 1 Jc Yfn Depression Son 1 Jc Yfn Drug abuse Son 1 Jc Yfn Alcohol abuse Son 2 Jc Yfn Depression Son 2 Jc Yfn Drug abuse Son 2 Jc Yfn Glaucoma Neg Hx Macular degeneration Neg Hx Relation Name Status Comments Brother 1 Connor Yerhot Brother 2 Rodrigo Yerhot Brother 3 Ford Yerhot Brother 4 Connor Yerhot Alive Brother 5 Rodrigo Yerhot Alive Brother 6 Ford Yerhot Alive Father 1 Ash Yerhot Father 2 Ash Yerhot Alive Maternal Grandmother 1 Eloisa Bitker Maternal Grandmother 2 Eloisa Bitker Alive Mother 1 Heidi Abbott Mother 2 Heidi Abbott Alive Sister 1 Cassandra Yarbrough Sister 2 Kathy Vazquez Sister 3 Cassandra Yarbrough Alive Sister 4 Kathy Vazquez Alive Son 1 Jc Coulter Son 2 Jc Coulter Alive Social History Tobacco Use Types Packs/Day Years Used Date Smoking Tobacco: Former Cigarettes 0.8 45 Q uit: 03/01/2024 Passive Smoke Exposure: Never Smokeless Tobacco: Never Tobacco Cessation:Counseling Given: Not Answered Alcohol Use Standard Drinks/Week Comments Not Currently 0 (1 standard drink = 0.6 oz pur e alcohol) [facility] [employer] Answer Date Recorded In the past 12 months has [employer], oil, or water [employer] threatened to shut off services in your [...] week 05/23/2022 How often do you attend [facility] or mandaeism services? More than 4 times per year 05/23/2022 Do you belong to any clubs o r organizations such as zoroastrianism groups, unions, fraternal or athletic groups, or [...] Answer Date Recorded PHQ-2 Score 0 06/06/2024 [facility] - Occupational Stress Questionnaire Answer Date Recorded [...] your living situation today? [facility] 07/27/2023 Education Answer Date Recorded What is the highest level of school you have completed or the highest degree you have received? Some college, no degree 05/23/2022 Comments No Sex and Gender Information Value Date Recorded Sex Assigned at Female 09/16/2017 3:29 PM CDT Legal Sex Female 7:11 AM CLAIMS SUPPORT SPECIALIST Gender Identity Female 09/16/2017 3:29 PM CDT Sexual Orientation Straight 09/16/2017 3: 29 PM CDT Last Filed Vital Signs Vital Sign Reading Time Taken Comments Blood Pressure 117/80 06/25/2024 3:18 PM CLAIMS SUPPORT SPECIALIST Pulse 77 06/25/2024 3:18 PM CLAIMS SUPPORT SPECIALIST Temperature 36.5 C (97.7 F) 06/25/2024 3:18 PM CLAIMS SUPPORT SPECIALIST Respiratory Rate 15 04/09/2024 10:00 AM CLAIMS SUPPORT SPECIALIST Oxygen Saturation 98% 05/21/2024 2:27 PM CLAIMS SUPPORT SPECIALIST Inhaled Oxygen Concentration - - Weight 65 kg (143 lb 4.8 oz) 06/25/2024 3:18 PM CLAIMS SUPPORT SPECIALIST Height 162.5 cm (5' 3.98) 06/25/2024 3:18 PM CS T Body Mass Index 24.62 06/25/2024 3:18 PM CLAIMS SUPPORT SPECIALIST Plan of Treatment Upcoming Encounters Date Type Department Care Team (Late st Contact Info) Description 08/09/2024 11:50 AM CDT Appointment Department of Radiology in [place], [place] 200 [place] [phone] Lilliam Ryan M.D. [address] [place] [phone] Health Maintenance Due Date Last Done Comments CT Colonography 1959 Cologuard 1959 FIT 1959 Lung Cancer Screening 1959 IPV Vaccines (2 of 3 - 4-dos e series) 05/26/1964 04/28/1964 Visit: Chronic Disease, age 18+ 09/05/2023 Mammogram 08/07/2024 08/08/2023, 07/27, 08/06/2021, Additional history exists Creatinine Level (Kidney Fun ction Test) 03/18/2025 03/18/2024, 11/25/2023, 09/20/2023, Additional history exists Fasting Glucose for Diabetes Screening 03/18/2025 03/18/2024, 09/20/2023, 09/20/2023, Additional history exists Potassium Level 03/18/2025 03/18/2024, 08/27, 01/22/2023, Additional history exists Sodium Level 03/18/2025 03/18/2024, 08/27, 01/22/2023, Additional history exists Office Visit for Blood Press ure Check / Re-check 06/25/2025 06/25/2024 DTaP,Tdap,and Td Vaccines (3 - Td or Tdap) 04/05/2026 04/05/2016, 02/24/2006, 12/22/2002, Additional history exists Colonoscopy 11/01/2026 11/01/2016, 09/2016, 09/20/2011 Colorectal Cancer Screening 11/01/2026 Lipid (Cholesterol) Screening 01/23/2028, 01/18/2022, 08/07/2020, Additional history exists Hepatitis B Vaccines Completed 09/18/1993, 04/02/1993, 01/25/1993 Zoster Vaccines Completed 08/04/2020, 02/26, 05/17/2013 Pneumococcal vaccine (50+ years) Completed 01/05/20, 07/15/2011 HIV Screening Completed 09/20/2023 Hepatitis C Screening Completed 09/20/2023 Influenza Vaccine Completed 03/05/2024, , 02/15/2022, Additional history exists COVID-19 Vaccine Completed 03/08/2024, , 11/14/2021, Additional history exists Depression Screening (Annual PHQ-2) Completed 06/08/2024 Procedures Procedure Name Priority Date/Time Associated Diagnosis Comments OTORHINOLARYNGOLOGY IMAGE EXAM Routine 07/27/2024 9:39 AM CDT DIPSTICK, U Routine 07/05/2024 12:24 PM CDT OSMOLALITY, U Routine 07/05/2024 12:24 PM CDT PH, U Routine 07/05/2024 12:24 PM CDT MICROSCOPIC AUTOMATED Routine 07/05/2024 12:24 PM CDT URINALYSIS WITH MICROSCOPIC Routine 07/05/2024 12:24 PM CDT Symptom Urinary BACTERIAL CULTURE, AEROBIC + SUSC, URINE Routine 07/05/2024 12:24 PM CDT Symptom Urinary AUDIOGRAM Routine 07/05/2024 12:00 AM CDT Acute Serous Otitis Media Recurrent Right MO URINALYSIS AUTO WO MICRO Routine 06/25/2024 3:48 PM CLAIMS SUPPORT SPECIALIST BACTERIAL CULTURE, AEROBIC + SUSC, URINE Routine 06/25/2024 3:48 PM CLAIMS SUPPORT SPECIALIST Acute Cystitis Without Hematuria PHYSICIAN INTERP SCREEN Routine 06/02/19 11:40 AM CLAIMS SUPPORT SPECIALIST THINPREP W/HPV CO-TEST SCREEN Routine 06/02/2024 11:40 AM CLAIMS SUPPORT SPECIALIST Pap Smear Examination HPV VAGINAL DETECT / GENOTYPING PCR Routine 06/02/2024 11:40 AM CLAIMS SUPPORT SPECIALIST FL THORACIC SPINE RADIOFREQUENCY DENERVATION Routine 05/21/2024 2:27 PM CLAIMS SUPPORT SPECIALIST 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 DX THORACIC SPINE 2 VIEWS RAD - Routine (most inpatients and all outpatients) 05/20/2024 1:22 PM CLAIMS SUPPORT SPECIALIST Pain Back Thoracic 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 Neuralgia Intercostal BASIC METABOLIC PANEL, S/P Routine 03/18/2024 7:01 AM CLAIMS SUPPORT SPECIALIST Preanesthetic Medical Exam HCV AB SCRN W/REFLEX TO HCV PCR, S Routine 09/20/2023 9:11 AM CDT Screening Test Laboratory HIV-1/-2 AG AND AB SCREEN, PLASMA Routine 09/20/2023 9:11 AM CDT Screening Test Laboratory BI BREAST SCREENING BILATERAL WITH TOMOSYNTHESIS RAD - Routine (most inpatients and all outpatients) 08/08/2023 4:24 PM CDT Screening Mammogram Breast Cancer LIPID PANEL, S Routine 01/22/2023 12:41 PM CDT Hyperlipidemia COLONOSCOPY Routine 11/01/2016 9:37 AM CDT from Last 3 Months or Most Recently Relevant to Health Maintenance Results * ENT Procedure-Otorhinolaryngology Image Exam (07/27/2024 9:39 AM CDT) Narrative IIMS - 07/27/2024 9:39 AM CDT This order has been created and auto-finalized to support the import of images acquired without order. The clinical documentation to support these images can be found on the encounter that produced images. us Provider Not In System IMG NON RAD IMAGING PROCE CHANG Final Result [facility] NA * (ABNORMAL) Dipstick, Urine (07/05/2024 12:24 PM CDT) Hemoglobin, QL, U Trace(A) Negative 07/05/2024 1:52 PM CDT DTL Leukocyte Esterase, U Negative Negative 07/05/2024 1:52 PM CDT DTL Nitrite, U Negative Negative 07/05/2024 1:52 PM CDT DTL Ketone, U Negative Negative mg/dL 07/05/2024 1:52 PM CDT DTL Glucose, U Negative Negative mg/dL 07/05/2024 1:52 PM CDT DTL Urine 07/05/2024 12:2 4 PM CDT 07/05/2024 1:30 PM CDT Maria Isabel Almaraz APRN, C.N.P., M.S. LAB URINE O RDERABLES Final Result Performing Organization Address [facility] de Phone Number [facility] [address] [place] [address] * Microscopic Automated (07/05/2024 12:24 PM CDT) Microscopy Normal 07/05/2024 1:52 PM CDT DTL RBC <3 <3 /hpf 07/05/2024 1:52 PM CDT DTL WBC 1-3 /hpf 07/05/2024 1:52 PM CDT DTL Comment: ----REFERENCE VALUE---- <4 (Males) <11 (Females) Crystals SEE COMMENT 07/05/2024 1:52 PM CDT DTL Comment:Calcium Oxalate erika tals present Urine 07/05/2024 12:2 4 PM CDT 07/05/2024 1:30 PM CDT Marcy Constantino APRNNDon., M.S. LAB URINE O RDERABLES Final Result Performing Organization Address [facility] de Phone Number [facility] 200 [place] [address], [facility] 200 [place] [address] * Bacterial Culture, Aerobic + Susceptibility, Urine (07/05/2024 12:24 PM CDT) Only the most recent of2 resultswithin the time period is included. Urine Culture No growth after 1 day of incubation. 07/06/2024 9:28 AM CDT DTL Urine (Urine, Midstream) 07/05/2024 12:24 PM CDT 07/05/2024 2:08 PM CDT Comment:Specimen Source Site : Urine Pablo Constantino APRN, M.S. LAB MICROBIOLOGY - GENERAL ORDERABLES Final Result Performing Organization Address City/[facility]/ZIP Co de Phone Number [facility] [address] [place] [address] * pH, Urine (07/05/2024 12:24 PM CDT) pH, U 6.0 4.5 - 8.0 07/05/2024 2:4 4 PM CDT DT Urine 07/05/2024 12:2 4 PM CDT 07/05/2024 1:30 PM CDT Maria Isabel Almaraz APRN, C.N.P., M.S. LAB URINE O RDERABLES Final Result Performing Organization Address City/[facility]/ZIP Co de Phone Number [facility] [address] [place] [address] * Osmolality, Urine (07/05/2024 12:24 PM CDT) Osmolality, U 526 150 - 1150 mOsm/kg 07/05/2024 2:44 PM CDT DT Urine 07/05/2024 12:2 4 PM CDT 07/05/2024 1:30 PM CDT Maria Isabel Almaraz APRN, C.N.P., M.S. LAB URINE O RDERABLES Final Result Performing Organization Address City/[facility]/ZIP Co de Phone Number [facility] [address] [place] [address] * Urinalysis, with Microscopic: Urine, Midstream (07/05/2024 12:24 PM CDT) Source Urine, Urine, Midstream 07/05/2024 1:30 PM CDT DTL Color, U Yellow 07/05/2024 1:30 PM CDT DTL Clarity, U Clear 07/05/2024 1:30 PM CDT DTL Protein, U 11 <26 mg/dL 07/05/2024 2:27 PM CDT DTL Protein/Osmol ality 0.21 <0.42 ratio 07/05/2024 2:44 PM CDT DTL Predicted 24 HR Protein, U 162 <229 mg/24 h 07/05/2024 2:44 PM CDT DTL Predicted Range 40-654 mg/24 h 07/05/2024 2:44 PM CDT DTL Urine (Urine, Midstream) 07/05/2024 12:24 PM CDT 07/05/2024 1:30 PM CDT Maria Isabel Almaraz APRN C.N.P., M.S. LAB URINE O RDERABLES Final Result [facility] [address] [place] [address], [facility] 200 [place] [address] * Audiogram (07/05/2024 12:00 AM CDT) 07/05/2024 us Mary Beth HILLIARD, P.A.-C. AUDIOLOGY SERVICES ORDERABLES Final Result AUDIOLOGY AND AHD * (ABNORMAL) Dipstick, POCT, Urine (06/25/2024 3:48 PM CLAIMS SUPPORT SPECIALIST) Glucose, POCT, U 100(A) Negative mg/dL 06/28/2024 10:02 AM CLAIMS SUPPORT SPECIALIST PCDT Ketone, POCT, U Trace(A) Negative mg/dL 06/28/2024 10:02 AM CLAIMS SUPPORT SPECIALIST PCDT Specific Hiram, POCT, U 1.010 1.005 - 1.030 06/28/2024 10:02 AM CLAIMS SUPPORT SPECIALIST PCDT Blood, POCT, U Trace(A) Negative 06/28/2024 10:02 AM CLAIMS SUPPORT SPECIALIST PCDT pH, POCT, Urine 5.0 5.0 - 8.0 06/28/2024 10:02 AM CLAIMS SUPPORT SPECIALIST PCDT Protein, POCT, U 30(A) Negative mg/dL 06/28/2024 10:02 AM CLAIMS SUPPORT SPECIALIST PCDT Nitrites, POCT, U Positive( A) Negative 06/28/2024 10:02 AM CLAIMS SUPPORT SPECIALIST PCDT Leukocytes, POCT, U Large(A) Negative 06/28/2024 10:02 AM CLAIMS SUPPORT SPECIALIST PCDT Urine 06/25/2024 3:48 PM CLAIMS SUPPORT SPECIALIST 06/28/2024 10:02 AM CLAIMS SUPPORT SPECIALIST us Unknown Provider LAB POCT ORDERABLES - DEVICE Fi nal Result [facility] PERFORM[facility] [address] [place] [address], [facility] PCDT [facility] [address] [place] [address] * HPV Vaginal Detection / Genotyping PCR (06/02/2024 11:40 AM CLAIMS SUPPORT SPECIALIST) HPV High Risk type 16, PCR Negative Negative 06/04/2024 11:12 AM CLAIMS SUPPORT SPECIALIST [facility] HPV High Risk type 18, PCR Negative Negative 06/04/2024 11:12 AM CLAIMS SUPPORT SPECIALIST [facility] HPV other High Risk types, PCR Negative Negative 06/04/2024 11:12 AM CLAIMS SUPPORT SPECIALIST [facility] Comment: The following Other High Risk HPV types were not detected: 31, 33, 35, 39, 45, 51, 52, 56, 58, 59, 66, and 68. This test was ordered in the context of a [facility] [employer] Cytology case; this result should be interpreted within the context of the [employer] cytology report. ----ADDITIONAL INFORMATION---- Testing was performed using the pete HPV assay ([employer] This report is intended for use in clinical monitoring and management of patients. It is not intended for use in medical-legal applications. This test has been modified from the fryline attendant's instructions. Its performance characteristics were determined by [facility] in a manner consistent with CLIA requirements. This test has not been cleared or approved by the U.S. Food and Drug Administration. 06/02/2024 11:4 0 AM CLAIMS SUPPORT SPECIALIST 06/02/2024 3:33 PM CLAIMS SUPPORT SPECIALIST Sari Yung APRN.N. P., D.N.P. LAB MICROBIOLOGY - GENERAL ORDERABLES Final Result Performing Organization Address City/[facility]/ZIP Co de Phone Number [facility] [address] [place], [place] [phone] [place] [address] [place] [address] [place] [address] * Physician Interpretation Screen (06/02/2024 11:40 AM CLAIMS SUPPORT SPECIALIST) PHYSICIAN INTERP SCREEN Performed DEFAULT 06/10/2024 1:16 PM CLAIMS SUPPORT SPECIALIST DTL 06/02/2024 11:4 0 AM CLAIMS SUPPORT SPECIALIST 06/02/2024 3:33 PM CLAIMS SUPPORT SPECIALIST Sari Yung APRN.N.P., D.N.P. LAB SURG PATH ORDERABLES Final Result Performing Organization Address [facility] [place] [address], [facility] [address] * (ABNORMAL) ThinPrep w/HPV Co-Test Screen (06/02/2024 11:40 AM CLAIMS SUPPORT SPECIALIST) (A) 06/10/2024 1:16 PM CLAIMS SUPPORT SPECIALIST DTL Report electronically signed by Macarena Ovalle M.D. I verify that I have examined all relevant slides/materials for the specimen(s) and rendered or confirmed the diagnosis. (A) 06/10/2024 1:16 PM CLAIMS SUPPORT SPECIALIST DTL Gross Description Received specimen in a ThinPrep vial.(A) 06/10/2024 1:16 PM CLAIMS SUPPORT SPECIALIST DTL Pap Test Source Vaginal(A) 1:16 PM CLAIMS SUPPORT SPECIALIST DTL Clinical History See comment(A) 05/29 1:16 PM CLAIMS SUPPORT SPECIALIST DTL Hormone Therapy/Contracep tives None/Not known(A) 06/10/2024 1:16 PM CLAIMS SUPPORT SPECIALIST DTL Disclaimer This test has been modified from the fryline attendant's instructions. Its performance characteristics were determined by [facility] in a manner consistent with CLIA requirements. This test has not been cleared or approved by the U.S. Food and Drug Administration. (A) 06/10/2024 1:16 PM CLAIMS SUPPORT SPECIALIST DTL Interpretation Vaginal (ThinPrep): Satisfactory for Evaluation Epithelial Cell Abnormality Atypical squamous cells of undetermined significance High Risk HPV testing results are NEGATIVE. See specific genotype results below. HPV with Genotyping, PCR, ThinPrep: HPV High Risk Type 16, PCR: NEGATIVE HPV High Risk Type 18, PCR: NEGATIVE HPV other High Risk types, PCR: NEGATIVE Other High Risk HPV types include: 31, 33, 35, 39, 45, 51, 52, 56, 58, 59, 66, and 68. (A) 06/10/2024 1:16 PM CLAIMS SUPPORT SPECIALIST DTL Thin Prep Vial (Vagina) 06/02/2024 11:40 AM CLAIMS SUPPORT SPECIALIST 06/02/2024 3:33 PM CLAIMS SUPPORT SPECIALIST Ana Mckeon APRN, C.N.P., D.N.P. LAB PAP P ATHDX ORDERABLES Final Result Performing Organization Address City/State/[facility] Co de Phone Number [facility] [address] [place] [address], [facility] DTL [address] [place] [address] * FL Thoracic Spine Radiofrequency Denervation (05/21/2024 2:27 PM CLAIMS SUPPORT SPECIALIST) Narrative Jack Hernandez M.D. - 05/21/2024 2:30 PM CLAIMS SUPPORT SPECIALIST Jack Hernandez M.D. 05/21/2024 2:41 PM FL Thoracic Spine Radiofrequency Denervation Performed by: Jack Hernandez M.D. Authorized by: Odalys Saldana APRN C.N.P. Care team members present 1. Chapo To M.D. 2. Chantal Morales L.P.N. 3. Chandrika Forrester M.S.N., RChristian, [facility] PROCEDURE SUMMARY Indications: Spondylosis without myelopathy Pre-procedural pain: 2/10 Post-procedural pain: 0/10 Site: thoracic Thoracic: medial branch block Medial branch block innervating the Right T8-T9, Right T9-T10 and Right T10-T11 facet joints Needle or RF cannula: RF cannula RF cannula size: 18 G RF cannula length: 60 mm Patient position: prone IMAGING Fluoroscopic image guidance used to localize target, identify at risk structures, and dynamically used to direct therapy to the target. Image(s) acquired and saved. INJECTED MEDICATIONS The injected medication(s) listed was divided equally between the identified injection location(s) Total volume of injectate (mL): 12 Total steroid in injectate (mg): 0 8 mL BUPivacaine 0.5 % (5 mg/mL); 4 mL lidocaine 20 mg/mL PROCEDURE DETAILS Medial branch block - thoracic: Using fluoroscopy, the junction of the transverse process and superior articulating process of the appropriate levels were identified and marked. Using fluoroscopic guidance, the spinal needle was advanced to each target. After negative aspiration, the specified contrast was injected at each site. Spread of contrast approximated the region of the medial branches/dorsal ramus and there was no evidence of intravascular uptake. The patient tolerated the procedure well and there were no apparent complications. After appropriate observation, the patient was dismissed in good condition under their own power. The patient was instructed to keep a pain diary and report the results of the injection. Complications: no apparent complications CONSENT Consent obtained: written (Risks, benefits and alternatives were discussed and a written Informed Consent was obtained. Please see Informed Consent form for further details.) UNIVERSAL PROTOCOL All relevant documentation and testing were reviewed and available. All required blood products, implants, devices and or special equipment were made available as applicable. Pre-procedure verification was conducted and the correct site was marked if required. A fire risk and smoke assessment were done as applicable. The procedural time-out to verify correct patient, correct side/site, and procedure was conducted prior to performing the procedure and confirmed in a procedural pause. PRE-PROCEDURE DETAILS Procedure purpose: therapeutic Appropriate hand hygiene, gown, cap, mask, protective eyewear, sterile gloves, skin preparation, sterile drape, and strict aseptic technique were utilized as applicable for the procedure: yes Site preparation: chlorhexidine SEDATION / ANESTHESIA Anesthesia method: local infiltration Local infiltrate type: lidocaine ATTESTATION STATEMENT A resident or fellow participated in the procedure, and the computer systems consultant was present for the entire procedure. OPERATIVE NOTE INFORMATION Specimens: 0 Drains: 0 Estimated blood loss: 0 Implants: 0 Odalys Saldana DATA ARCHITECT MANAGER, C.N.P. FLUORO GUIDED PAIN PROC EDURES Final Result * DX Thoracic Spine 2 Views (05/20/2024 1:22 PM CLAIMS SUPPORT SPECIALIST) Anatomical Region Laterality Modality Thoracic Spine, Musculoskele rosie RST LOS, Neuroradiology ARZ LOS, Muskuloskeletal FLA LOS N/A Digita l Radiography Impressions 05/20/2024 1:50 PM CLAIMS SUPPORT SPECIALIST Slight progression of hypertrophic arthritis thoracic spine. More advanced degenerative disk disease about the thoracolumbar junction and visualized upper lumbar spine with low grade subluxations. No discrete or advanced compression fractures. Small areas of thoracolumbar wedging again appreciated. Narrative 05/20/2024 1:50 PM CLAIMS SUPPORT SPECIALIST EXAM: DX THORACIC SPINE 2 VIEWS Procedure Note Elvis Hudson M.D. - 05/20/2024 EXAM: DX THORACIC SPINE 2 VIEWS IMPRESSION: Slight progression of hypertrophic arthritis thoracic spine. More advanceddegenerative disk disease about the thoracolumbar junction and visualizedupper lumbar spine with low grade subluxations. No discrete or advancedcompression fractures. Small areas of thoracolumbar wedging again appreciated. Anna Damon APRN, C.N.P., D.N.P. IMG DIAGNO STIC IMAGING PROCEDURES Final Result * (ABNORMAL) Basic Metabolic Panel (03/18/2024 7:01 AM CLAIMS SUPPORT SPECIALIST) Potassium, S 4.8 3.6 - 5.2 mmol/L 03/18/2024 8:14 AM CLAIMS SUPPORT SPECIALIST DTL Sodium, S 139 135 - 145 mmol/L 03/18/2024 8:14 AM CLAIMS SUPPORT SPECIALIST DTL Chloride, S 108(H) 98 - 107 mmol/L 03/18/2024 8:14 AM CLAIMS SUPPORT SPECIALIST DTL Bicarbonate, S 24 22 - 29 mmol/L 03/18/2024 8:14 AM CLAIMS SUPPORT SPECIALIST DTL Anion Gap 7 7 - 15 03/18/2024 8:14 AM CLAIMS SUPPORT SPECIALIST DTL BUN (Blood Urea Nitrogen), S 15 6 - 21 mg/dL 03/18/2024 8:14 AM CLAIMS SUPPORT SPECIALIST DTL Creatinine 0.83 0.59 - 1.04 mg/dL 03/18/2024 8:14 AM CLAIMS SUPPORT SPECIALIST DTL Estimated GFR (eGFR) 79 >=60 mL/min/BSA 03/18/2024 8:14 AM CLAIMS SUPPORT SPECIALIST DTL Comment: Estimated GFR calculated using the 2020 CKD_EPI creatinine equation. Calcium, Total, S 9.2 8.8 - 10.2 mg/dL 03/18/2024 8:14 AM CLAIMS SUPPORT SPECIALIST DTL Glucose, S 89 70 - 140 mg/dL 03/18/2024 8:14 AM CLAIMS SUPPORT SPECIALIST DTL Blood (Blood, Venous) 03/18/2024 7:01 AM CLAIMS SUPPORT SPECIALIST 03/18/2024 7:46 AM CLAIMS SUPPORT SPECIALIST Cris HILLIARD, P.A.-C. LAB BLOOD ADD-ON Final Result [facility] [address] [place] [address], [facility] [address] [place] [address] * HIV-1/-2 Ag and Ab Screen, Plasma (09/20/2023 9:11 AM CDT) [facility] HIV-1/-2 Ag and Ab Screen, P Negative Negative 09/20/2023 12:46 PM CDT [facility] Comment: Negative result does not rule out HIV infection. If exposure to HIV infection occurred <14 days ago, contact the laboratory to request addition of HIV-1/HIV-2 RNA detection, Plasma (HIP12). Blood (Blood, Venous) 09/20/2023 9:11 AM CDT 09/20/2023 11:52 AM CDT Pablo Constantino APRN, M.S. LAB MICROBIOLOGY - BLOOD ORDERABLES Final Result Performing Organization Address [facility] Co de Phone Number [address] [place], [place] [id number] [place] [address] [place] [address] * HCV Ab Scrn w/Reflex to HCV PCR, Serum (09/20/2023 9:11 AM CDT) HCV Ab Screen, S Negative Negative 09/20/2023 12:47 PM CDT [facility] Comment: Consumption of high-dose biotin supplement within 12 hours of blood collection for this test can cause false-negative results. Blood (Blood, Venous) 09/20/2023 9:11 AM CDT 09/20/2023 11:52 AM CDT Pablo Constantino APRN., M.S. LAB MICROBIOLOGY - BLOOD ORDERABLES Final Result Performing Organization Address [facility] Co de Phone Number [address] [place] [address] [place] [address] * BI Breast Screening Bilateral with Tomosynthesis (08/08/2023 4:24 PM CDT) Anatomical Region Laterality Modality Breast, Breast Imaging RST L OS, Breast Imaging ARZ LOS, Breast Imaging FLA LOS Bilateral Mammography Impressions 08/11/2023 9:54 AM CDT Negative. RECOMMENDATION: Annual Screening Mammogram The patient mentioned an area of concern in her breast to the technologist at the time of screening mammogram. She was given a card advising her to discuss this finding with her referring provider. ASSESSMENT: BI-RADS: 1: Negative. Narrative 08/11/2023 9:54 AM CDT EXAM: BI BREAST SCREENING BILATERAL WITH TOMOSYNTHESIS Current study was evaluated with a Computer Aided Detection (CAD) system. INDICATION: Screening mammogram. COMPARISON: Prior exam(s) were available and reviewed for comparison. DENSITY: a. The breast(s) are almost entirely fatty. FINDINGS: No findings of malignancy. No significant change since prior exam. Procedure Note Zhao Reyna M.D. - 08/11/2023 EXAM: BI BREAST SCREENING BILATERAL WITH TOMOSYNTHESIS Current study was evaluated with a Computer Aided Detection (CAD) system. INDICATION: Screening mammogram. COMPARISON: Prior exam(s) were available and reviewed for comparison. DENSITY: a. The breast(s) are almost entirely fatty. FINDINGS: No findings of malignancy. No significant change since priorexam. IMPRESSION: Negative. RECOMMENDATION: Annual Screening Mammogram The patient mentioned an area of concern in her breast to the technologistat the time of screening mammogram. She was given a card advising her todiscuss this finding with her referring provider. ASSESSMENT: BI-RADS: 1: Negative. us Lilliam Ryan M.D. IMG BI PROCEDURES Final Resu lt * Lipid Panel (01/22/2023 12:41 PM CDT) Triglycerides 84 mg/dL 01/22/2023 3:06 PM CDT DTL Comment: ----REFERENCE VALUE---- Normal: <150 mg/dL Borderline High: 150-199 mg/dL High: 200-499 mg/dL Very High: > or =500 mg/dL Cholesterol, Total 117 mg/dL 2022 3:06 PM CDT DTL Comment: ----REFERENCE VALUE---- Desirable: < 200 mg/dL Borderline High: 200 - 239 mg/dL High: > or = 240 mg/dL Cholesterol, LDL, Calculated 44 mg/dL 01/22/2023 3:06 PM CDT DTL Comment: ----REFERENCE VALUE---- Desirable: <100 mg/dL Above Desirable: 100-129 mg/dL Borderline High: 130-159 mg/dL High: 160-189 mg/dL Very High: >=190 mg/dL ----ADDITIONAL INFORMATION---- LDL cholesterol calculated using the Hanley/NIH equation. Cholesterol, HDL, S 57 >=50 mg/dL 01/22/2023 3:06 PM CDT DTL Cholesterol, Non-HDL, Calculated 60 mg/dL 01/22/2023 3:06 PM CDT DTL Comment: ----REFERENCE VALUE---- Desirable: <130 mg/dL Above Desirable: 130-159 mg/dL Borderline High: 160-189 mg/dL High: 190-219 mg/dL Very High: > or =220 mg/dL Fasting (8 HR or more) No 01/22/2023 1:12 PM CDT DTL Blood (Blood, Venous) 01/22/2023 12:41 PM CDT 01/22/2023 1:12 PM CDT Lilliam Ryan M.D. LAB BLOOD ADD-ON Final Resul t Performing Organization Address [facility] Co de Phone Number [facility] [address] [facility] [address] [place] [address] * Colonoscopy (11/01/2016 9:37 AM CDT) 11/01/2016 9:37 AM CDT Jasson SunSCorbin GI PROCEDURE OR DERABLES Final Result Performing Organization Address [facility] Co de Phone Number [facility]OR[facility] CONVERSION from Last 3 Months or Most Recently Relevant to Health Maintenance Insurance [employer] Advance Directives For more information, please contact: [phone] Documents on File Type Date Recorded Patient Manager Of Care Expl anation Advance Directives 05/01/2020 12:43 PM POA for Healthcare Healthcare Agents on File Name Relationship Healthcare Agent Relationship Communication Shahida Ashton Daughter Health Care Agent Jack Coulter Spouse First Alternate Health Care Agent Care Teams Vb Net Programmer Relationship Specialty Start Date End Date Lilliam Ryan M.D. [address] [place] [phone] PCP - General Family Medicine 05/29/16
--- OUTSIDE RECORDS SUMMARY | 2024-07-29 22:53 | XMS_ITS | Encounter Summary ---
Author Organization [facility] Address [address] [place] [address] Care Team Providers Care Quality Control Assessor Name Role Phone Lilliam Ryan M.D. Primary Care Provider Reason for Visit * Outpatient (Routine) - Closed Specialty Diagnoses / Procedures Referred By Em arroyo Referred To Contact Otorhinolaryngology Diagnoses Perforation Tympanic Membrane Right Mary Beth Clancy, LUIS, P.A.-C. [address] [place] [address] Phone: tel: fax: [facility] Referral ID Status Reason Start Date Expiration Date Visits Re quested Visits Authorized [id number] Closed 07/19/2024 01/18/2026 1 1 Encounter Details Date Type Department Care Team (Latest Contact Info) Description 07/27/2024 9:00 AM CDT Comprehensive Visit Department of Otorhinolaryngology in [place], [place] [address] [place] [phone] Florentin Bustamante M.D. [address] [place] [phone] Loss Hearing Conductive Tympanic Membrane (Primary Dx); Perforation Tympanic Membrane Right Social History Tobacco Use Types Packs/Day Years Used Date Smoking Tobacco: Former Cigarettes 0.8 45 Q uit: 03/01/2024 Passive Smoke Exposure: Never Smokeless Tobacco: Never Alcohol Use Standard Drinks/Week Comments Not Currently 0 (1 standard drink = 0.6 oz pur e alcohol) [facility] Utilities Answer Date Recorded In the past 12 months has th e electric, gas, oil, or water company [...] often do you attend chur ch or uatsdin services? More than 4 times per year 05/23/2022 Do you belong to any clubs o r organizations such as restorationist groups, unions, fraternal or athletic groups, or [...] Answer Date Recorded PHQ-2 Score 0 06/06/2024 [facility] - Occupational Stress Questionnaire Answer Date [...] your living situation today? [facility] 07/27/2023 Education Answer Date Recorded What is the highest level of school you have completed or the highest degree you have received? 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 - 07/27/2024 9:00 AM CDT Images from the original note were not included. Otology/Neurotology Consult Visit CHIEF COMPLAINT/PURPOSE OF VISIT: Right-sided tympanic membrane perforation HISTORY OF PRESENT ILLNESS: Ms. Deanna Lindsay is a 63 y.o. female who presents for evaluation of a previously diagnosed right-sided tympanic membrane perforation. She is referred by RYAN Clancy who outlined her history very nicely in the note from 07/19/24. Briefly, Ms. Lindsay reports symptoms including hearing loss, tinnitus, and otalgia, but denies dizziness, autophony, somatosounds, history of prior otologic surgery, history of major head trauma, or family history of hearing loss in young adulthood. She never had PE tubes. She thinks she perforated the ear drum herself in 2003 with a ear cleaning kit. She has not had issues until the past 6 months when she started getting recurrent infections. She does not swim regularly. Her primary goals of surgery would be to reduce the frequency of infectionsthat have been occurring since March and potentially improve her hearing. ROS: Pertinent items are noted in HPI; all other review of systems were negative. CURRENT MEDICATIONS: Current Medications[1] ALLERGIES: Allergies Allergen Reactions Adhesive Other (see comments) Amoxicillin Rash Penicillin allergy skin testing was negative on 03/18/24. May use penicillins and cephalosporins. Avoid amoxicillin and ampicillin. Bupropion Hives (Reselect Reaction) Lisinopril GI intolerance pancreatitis like symptoms Sulfa (Sulfonamide Antibiotics) Hepatic Failure PAST MEDICAL HISTORY: Medical History[2] SURGICAL HISTORY: Surgical History[3] SOCIAL HISTORY: Social History Socioeconomic History Marital status: Spouse name: Not on file Number of children: Not on file Years of education: Not on file Highest education level: Some college, no degree Occupational History Not on file Tobacco Use Smoking status: Former Current packs/day: 0.00 Average packs/day: 0.8 packs/day for 45.0 years (33.8 ttl pk-yrs) Types: Cigarettes Quit date: 03/01/2024 Years since quittin.4 Passive exposure: Never Smokeless tobacco: Never Vaping Use Vaping status: never used Substance and Sexual Activity Alcohol use: Not Currently Drug use: Never Sexual activity: Yes Partners: Male control/protection: Post-menopausal, Tubal ligation (tubes tied), Other Comment: Hysterectomy Other Topics Concern Not on file Social History Narrative Not on file Social Drivers of Health Food Insecurity: No Food Insecurity (07/27/2023) Hunger Vital Sign Worried About Running Out of Food in the Last Year: Never true Ran Out of Food in the Last Year: Never true Transportation Needs: No Transportation Needs (07/27/2023) PRAPARE - Transportation Lack of Transportation (Medical): No Lack of Transportation (Non-Medical): No Physical Activity: Sufficiently Active (07/22/2023) Exercise Vital Sign Days of Exercise per Week: 4 days Minutes of Exercise per Session: 70 min Intimate Partner Violence: Not At Risk (09/20/2022) Humiliation, Afraid, Rape, and Kick questionnaire Fear of Current or Ex-Partner: No Emotionally Abused: No Physically Abused: No Sexually Abused: No Housing Stability: Low Risk (07/27/2023) Housing Stability Housing: Living Situation: I have a steady place to live FAMILY HISTORY: Family History[4] PHYSICAL EXAM: General: 63 y.o. year old female, in no acute distress. Ambulates to and from the exam chair without difficulty. Head: Normocephalic atraumatic Eyes: Extraocular muscles are intact. No spontaneous or gaze-evoked nystagmus. ENT: Right ear demonstrates normal shaped pinna, external auditory canal is patent, tympanic membrane demonstrates a cental perforation, approximately 15- 20% in size, and is dry, located anteroinferiorly (see QREADS endoscopic images) . Left ear demonstrates normal shaped pinna, external auditory canal is patent, and tympanic membrane is intact. House-Brackmann grade 1 of 6 bilaterally. Audiogram: Assessment/Plan: #1. Right-sided tympanic membrane perforation We reviewed the relevant anatomy, pathophysiology and natural history of tympanic membrane perforation. We discussed the benefits and drawbacks of observation, medical management and surgery. After reviewing this, Ms. Shilpa Coulter wishes to continue to consider her options and let us know how shewould like to proceed through the portal. [1] Current Outpatient Medications: acetaminophen (TYLENOL) 500 mg tablet, Take 2 tablets by mouth every 6 (six) hours as needed., Disp: , Rfl: ascorbic acid, vitamin C, (Vitamin C) 1,000 mg tablet, Take 1,000 mg by mouth 3 (three) times a day., Disp: , Rfl: cranberry fruit (cranberry) 450 mg tablet, Take 2 tablets by mouth daily., Disp: , Rfl: cranberry-vitamin C-mannose 250-30-50 mg tablet,chewable, Chew 4 tablets daily., Disp: , Rfl: cyclobenzaprine (FlexeriL) 10 mg tablet, Take 1 tablet (10 mg total) by mouth 3 (three) times a dayas needed for muscle spasms., Disp: 90 tablet, Rfl: 1 diclofenac sodium (VOLTAREN) 1 % gel, Apply 2 g topically 4 (four) times a day as needed. Apply to back for arthritis., Disp: , Rfl: DULoxetine (Cymbalta) [address] capsule, Take 1 capsule (30 mg total) by mouth daily with 60mg for atotal of 90mg, Disp: 90 capsule, Rfl: 3 DULoxetine (Cymbalta) [address] capsule, Take 1 capsule (60 mg total) by mouth daily., Disp: 90 capsule, Rfl: 3 estradioL (Estrace) 0.1 mg/g (0.01%) vaginal cream, Insert 1 g into the vagina 2 (two) times a week., Disp: 42.5 g, Rfl: 6 losartan (Cozaar) 50 mg tablet, TAKE 1 TABLET BY MOUTH DAILY, Disp: 90 tablet, Rfl: 3 methenamine (Hiprex) 1 gram tablet, Take 1 tablet (1 g total) by mouth 2 (two) times a day., Disp: 180 tablet, Rfl: 0 nitrofurantoin monohydrate (Macrobid) 100 mg capsule, Take 1 capsule (100 mg total) by mouth 2 (two) times a day., Disp: 10 capsule, Rfl: 0 pregabalin (Lyrica) 150 mg capsule, Take 1 capsule (150 mg total) by mouth 2 (two) times a day., Disp: 180 capsule, Rfl: 2 rosuvastatin (Crestor) 10 mg tablet, TAKE 1 TABLET BY MOUTH DAILY, Disp: 90 tablet, Rfl: 3 semaglutide (Wegovy) 2.4 mg/0.75 mL pen injector injection, Inject 2.4 mg under the skin every 7 (seven) days., Disp: 3 mL, Rfl: 11 topiramate (Topamax) 100 mg tablet, TAKE 1 TABLET BY MOUTH DAILY, Disp: 100 tablet, Rfl: 3 verapamiL (Calan-SR) 240 mg ER tablet, TAKE 1 TABLET BY MOUTH DAILY, Disp: 90 tablet, Rfl: 3 [2] Past Medical History: Diagnosis Date Hyperlipidemia Hypertension NOS Migraine Headache Pain Thoracic Myofascial 12/09/2017 Post Operative Nausea/Vomiting Stone Kidney [3] Past Surgical History: Procedure Laterality Date SECTION 01/07/1985 07/07/1987 MANDIBLE SURGERY N/A 10/22/2001 >Autogenous bone grafting from left mandibular ramus with a maxillary sinus lift. OTHER CONVERTED SHX (SEE COMMENT) N/A 05/01/2016 >1. Surgical removal of fractured, nonsalvageable implant, site No. 14. OTHER CONVERTED SHX (SEE COMMENT) N/A >Excision of labial lesion. RECONSTRUCTION MANDIBLE WITH ENDOSSEOUS IMPLANT N/A 04/30/2002 >Uncovering of endosseous implant and healing abutment placement. REPAIR / RECONSTRUCTION INTERPHALANGEAL JOINT N/A 06/06/1994 >Volar capsulotomy, proximal interphalangeal joint, right little finger. SUPRACERVICAL HYSTERECTOMY TENOTOMY TENDON FOOT Left 04/09/2024 Procedure: FLEXOR TENOTOMY LEFT TOES 1-3.; Surgeon: Anthony Sanders III, M.D.; [facility]: [facility] 15 OR TOOTH EXTRACTION N/A 09/27/1996 >Extraction tooth No. 14. TOTAL VAGINAL HYSTERECTOMY N/A 05/13/2002 >Vaginal hysterectomy. TUBAL LIGATION [4] Family History Problem Relation Name Age of Onset Alcohol abuse Father Ash Abbott Hypertension Father Ash Abbott Coronary artery disease Father Ash Abbott Hyperlipidemia Father Ash Abbott Lung cancer Father Ash Abbott Alcohol abuse Son Jc Yfn Drug abuse Son Jc Yfn Depression Son Jc Coulter Alcohol abuse Sister Cassandra [place] Hypertension Sister Cassandra Taylordenver Alcohol abuse Brother Connor Yerhot Depression Brother Connor Yerhot Hypertension Brother Connor Yerhot Coronary artery disease Brother Connor Yerhot Suicide Attempts Brother Connor Yerhot Alcohol abuse Brother Rodrigo Yerhot Depression Mother Heidi Yerhot Hypertension Mother Heidi Yerhot Stroke Mother Heidi Yerhot Thyroid disease Mother Heidi Yerhot Dementia Mother Heidi Yerhot Coronary artery disease Mother Heidi Yerhot Hyperlipidemia Mother Heidi [place] Migraines Mother Heidi Yerhot Arthritis Mother Heidi [place] Breast cancer Mother Heidi Yerhot Hypertension Sister Kathy Vazquez Hypertension Brother Ford Yerhot Other cancer Maternal Grandmother Eloisa Bitker liver cancer Glaucoma Neg Hx Macular degeneration Neg Hx Breast cancer Mother Heidi [place] Coronary artery disease Mother Heidi [place] Stroke Mother Heidi Yerhot Hypertension Mother Heidi Yerhot Hyperlipidemia Mother Heidi Y[place]hot Thyroid disease Mother Heidi [place] Arthritis Mother Heidi [place] Migraines Mother Heidi Y[place]hot Dementia Mother Heidi Y[place] Depression Mother Heidi Yerhot Lung cancer Father Ash Yerhot Coronary artery disease Father Ash Yerhot Hypertension Father Ash Yerhot Hyperlipidemia Father Ash Yerhot Alcohol abuse Father Ash Yerhot Other cancer Maternal Grandmother Eloisa Bitker liver cancer Coronary artery disease Brother Connor Yerhot Hypertension Brother Connor Yerhot Alcohol abuse Brother Connor Yerhot Depression Brother Connor Yerhot Suicide Attempts Brother Connor Yerhot Hypertension Sister Cassandra Seegmiller Alcohol abuse Sister Cassandra Seegmiller Hypertension Sister Kathy Vazquez Hypertension Brother Ford Yerhot Alcohol abuse Son Jc Yfn Drug abuse Son Jc Yfn Depression Son Jc Yfn Alcohol abuse Brother Rodrigo Yerhot Cosigned by Florentin Bustamante M.D. at 07/27/2024 10:18 AM CDT Associated attestation - Florentin Bustamante M.D. - 07/27/2024 10:18 AM CDT I saw and evaluated the patient, participating in the jacobson portions of the service. I reviewed the resident/fellow???s note. I agree with the resident/fellow???s findings and plan. Patient with idiopathic right tympanic membrane perforation. It may have been present since the early from an ear cleaning lavage incident. It is not cause trouble with hearing to current. It has not caused infection problems until March 2024. She has had multiple infections treated and it is not clear whether this is otitis media or otitis externa. Examination shows a 20% anterior inferior tympanic membrane perforation. I can not see the edge of it with the microscope. She has the option of observation or a RIGHT postauricular cartilage tympanoplasty (kidney erickson shape). I think this has an 85% chance of success and a 15% chance of failure to close the perforation. I think there is a small chance of worsening her conductive hearing loss from scarring or blunting. I think that there is a chance thatthe infections when get better with or without closure of the tympanic membrane perforation. This is because her more recent infection certainly could be otitis externa, and have nothing to do with the perforation being present. As we left it, she would like to think about things and will call me back if she wants to proceed with elective surgery. documented in this encounter Plan of Treatment Upcoming Encounters Date Type Department Care Team (Late st Contact Info) Description 08/09/2024 11:50 AM CDT Appointment Department of Radiology in [place], [place] [address] [place] [phone] Lilliam Ryan M.D. [address] [place] [phone] documented as of this encounter Visit Diagnoses Diagnosis Loss Hearing Conductive Tympanic Membrane- Primary Perforation Tympanic Membrane Right Screening Mammogram Breast Cancer documented in this encounter Additional Health Concerns Assessment Noted Time PHQ-9 Depression Total Score: 5 08/08/19 21 9:41 AM CDT documented as of this encounter Care Teams Quality Control Assessor Relationship Specialty Start Date End Date Lilliam Ryan M.D. [address] [place] [phone] PCP - General Family Medicine 05/29/16 documented as of this encounter
--- OUTSIDE RECORDS SUMMARY | 2024-07-29 22:53 | XMS_ITS | Encounter Summary ---
Author Organization [facility] Address [address] [place] [address] Care Team Providers Care Women'S Apparel Salesperson Name Role Phone Lilliam Ryan M.D. Primary Care Provider [phone] Reason for Referral * Outpatient (Routine) - Closed Specialty Diagnoses / Procedures Referred By Contac t Referred To Contact Otorhinolaryngology Diagnoses Perforation Tympanic Membrane Right Mary Beth Clancy MPAS, P.A.-C. 200 [place] [address] Phone: tel: fax: [facility] Referral ID Status Reason Start Date Expiration Date Visits Re quested Visits Authorized [id number] Closed 07/19/2024 01/18/2026 1 1 Reason for Visit * Outpatient (Routine) - Closed Specialty Diagnoses / Procedures Referred By Contac t Referred To Contact Otorhinolaryngology Diagnoses Acute Serous Otitis Media Recurrent Right Zo Riggs APRN, C.N.P., D.N.P. [address] [place] [phone] Phone: tel: fax: [facility] Referral ID Status Reason Start Date Expiration Date V isits Requested Visits Authorized [id number] Closed Specialty Services Required 06/08/2024 12/08/2025 1 1 Encounter Details Date Type Department Care Team (Latest Contact Info) Description 07/19/2024 8:00 AM CDT Comprehensive Visit Department of Otorhinolaryngology in [place], [place] [address] [place] [address] Mary Beth Clancy MPAS, P.A.-C. [address] [place] [address] Perforation Tympanic Membrane Right (Primary Dx); Acute Serous Otitis Media Recurrent Right Social History Tobacco Use Types Packs/Day Years Used Date Smoking Tobacco: Former Cigarettes 0.8 45 Q uit: 03/01/2024 Passive Smoke Exposure: Never Smokeless Tobacco: Never Alcohol Use Standard Drinks/Week Comments Not Currently 0 (1 standard drink = 0.6 oz pur e alcohol) [facility] Utilities Answer Date Recorded In the past 12 months has e [employer], gas, oil, or water [employer] threatened to shut off services in your [...] week 05/23/2022 How often do you attend [facility] or jainism services? More than 4 times per year 05/23/2022 Do you belong to any clubs o r organizations such as gnosticism groups, unions, fraternal or athletic groups, or [...] Answer Date Recorded PHQ-2 Score 0 06/06/2024 [employer] of Occupat ional [facility] - Occupational Stress Questionnaire Answer Date [...] your living situation today? I have a [facility] place to live 07/27/2023 Education Answer Date Recorded What is the highest level of school you have completed or the highest degree you have received? 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 - 07/19/2024 8:00 AM CDT Images from the original note were not included. SUBJECTIVE CHIEF COMPLAINT / REASON FOR VISIT Right otalgia HISTORY OF PRESENT ILLNESS Deanna Lindsay is a 63 y.o. female who presents for ENT evaluation of right. She was referred by her family medicine team. Specifically, during her visit with Zo Riggs APRN, C.N.PCorbin, D.N.P. on 06/08/2024, patient noted recurrent right ear pain despite multiple treatments for otitis externa and otitis media, prompting today's evaluation. Today, Mrs. Lindsay reports a longstanding history of right tympanic membrane perforation, first noted in 2003 following a personal attempted ear lavage in the setting of otitis externa. She has been doing well without ear concerns until March of 2024. She denies any prompting factors. Atthat time, she began noticing right-sided otalgia and was diagnosed with otitis externa. She was initially treated with otic drops, however, with persistent symptoms, additional oral antibiotics wereprescribed, which did eventually resolve her pain. Unfortunately, she had a recurrence of pain in May of 2024 and was again evaluated and prescribed ofloxacin drops. These drops did resolve her pain until it occurred again last Friday. She has been using left over ofloxacin drops for the last5 days. Today, Mrs. Lindsay notes dull discomfort of the right ear. She also notes right-sided tinnitus, which is non bothersome. She denies additional otologic concerns including subjective hearing loss, otorrhea, or aural fullness. She has a history of vestibular neuritis and currently notes dizziness concerns, which she describes is non vertiginous and brief. No history of otologic surgeries. The following portions of the patient's history were reviewed and updated as appropriate: allergies, current medications, family history, medical history, social history, surgical history, and problem list. Social History Tobacco Use Smoking status: Former Packs/day: 0.00 Years: 0.8 packs/day for 45.0 years (33.8 ttl pk-yrs) Types: Cigarettes Quit date: 03/01/2024 Years since quittin.3 Passive exposure: Never Smokeless tobacco: Never OBJECTIVE PHYSICAL EXAM General: Well appearing in no acute distress. Head: Normocephalic, atraumatic. Eyes: Extraocular eye movements intact bilaterally. Ears: Bilateral external ears without masses or lesions. Bilateral ears examined under otomicroscopy. Right Ear: Externally normal in appearance. External auditory canal patent and healthy. Tympanic membrane with dry, 20% perforation. No evidence of effusion/infection. Left Ear: Externally normal in appearance. External auditory canal patent and healthy. Tympanic membrane intact without perforation, retraction, bulging, or evidence of effusion/infection. Respiratory: Unlabored respirations. Psych: Appropriate mood and affect. DIAGNOSTICS: Audiogram 07/05/2024: Right Ear: Moderate conductive hearing loss rising to normal hearing from 250- 1000 Hz with normal hearing sloping to moderately severe sensorineural hearing loss from 2866-7788 Hz Left Ear: Hearing is within normal limits 250-8000 Hz Word recognition ability was assessed using recorded isophoneme stimuli, 20-word lists, and resulted in scores of 100% in the right ear and 100% in the left. Tympanometry revealed normal ear canal volume and compliance in the left ear, (Type A). Seal could not be maintained in order to obtain tympanogram on the right side. ASSESSMENT / PLAN #1 Acute Serous Otitis Media Recurrent Right #2 Perforation Tympanic Membrane Right It was a pleasure to see Mrs. Lindsay today. She presents regarding recurrent right-sided ear infections, presenting as increased otalgia. Reviewed her audiologic evaluation, which revealed right-sided mixed hearing loss, with conductive component in the low frequencies. Right-sided tympanogram could not be obtained. On otologic examination today, a inferior 20% perforation of the right tympanic membrane was noted. No evidence of otorrhea or infection. Recommended she discontinue ofloxacin drops. We discussed goals of tympanoplasty including decreasing infection burden, creating a water safe ear, and improving hearing. In the setting of 3 treatments for otitis externa versus otitis media and conductive component of hearing loss noted on her recent audiogram, we discussed it would be reasonable to proceed with otology consult for further consideration of tympanoplasty, which she was agreeable to. Order was placed. All questions were entertained to the best of my ability. Patient expressed understanding and agreement with this treatment plan. documented in this encounter Plan of Treatment Upcoming Encounters Date Type Department Care Team (Late st Contact Info) Description 08/09/2024 11:50 AM CDT Appointment Department of Radiology in [place], [place] [address] [place] [phone] Lilliam Ryan M.D. [address] [place] [phone] Scheduled Referrals Name Type Priority Associated Diagnoses Order Schedule Otorhinolaryngology - Otology and neurotology consult (clinic) Outpatient Referral Routine Perforation Tympanic Membrane Right Expected: 07/19/2024, Expires: 10/19/2025 documented as of this encounter Visit Diagnoses Diagnosis Perforation Tympanic Membrane Right- Primary Acute Serous Otitis Media Recurrent Right Screening Mammogram Breast Cancer documented in this encounter Additional Health Concerns Assessment Noted Time PHQ-9 Depression Total Score: 5 08/08/19 21 9:41 AM CDT documented as of this encounter Care Teams Women'S Apparel Salesperson Relationship Specialty Start Date End Date Lilliam Ryan M.D. [address] [place] [phone] PCP - General Family Medicine 05/29/16 documented as of this encounter
--- OUTSIDE RECORDS SUMMARY | 2024-07-29 22:53 | XMS_ITS | Encounter Summary ---
Author Organization [facility] Address [address] [place] [address] Care Team Providers Care Marketing Business Analyst Name Role Phone Lilliam Ryan M.D. Primary Care Provider Encounter Details Date Type Department Care Team (Latest Contact Info) Description 07/05/2024 12:10 PM CDT - 07/05/2024 11:59 PM CDT Hospital Encounter Department of Laboratory Medicine and Pathology, [facility], in [place], [place] [address] [phone] Maria Isabel Almaraz, PRIYA, C.N.P., M.S. [address] [place] [phone] Symptom Urinary Discharge Disposition: Home or Self Care Social History Tobacco Use Types Packs/Day Years Used Date Smoking Tobacco: Former Cigarettes 0.8 45 Q uit: 03/01/2024 Passive Smoke Exposure: Never Smokeless Tobacco: Never Alcohol Use Standard Drinks/Week Comments Not Currently 0 (1 standard drink = 0.6 oz pur e alcohol) [facility] Utilities Answer Date Recorded In the [...] often do you attend chur ch or taoist services? More than 4 times per year 05/23/2022 Do you belong to any clubs o r organizations such as christian groups, unions, fraternal or athletic groups, or [...] Answer Date Recorded PHQ-2 Score 0 06/06/2024 [facility] of Occupat ional Health - Occupational Stress [...] your living situation today? I have a [facility] place to live 07/27/2023 Education Answer Date Recorded What is the highest level of school you have completed or the highest degree you have received? Some college, no degree 05/23/2022 Comments No Sex and Gender Information Value Date Recorded Sex Assigned at Female 09/16/2017 3:29 PM CDT Legal Sex Female 7:11 AM AGRICULTURE ENGINEER Gender Identity Female 09/16/2017 3:29 PM CDT Sexual Orientation Straight 09/16/2017 3: 29 PM CDT documented as of this encounter Medications at Time of Discharge acetaminophen (TYLENOL) 500 mg tablet Take 2 tablets by mouth every 6 (six) hours as needed. 08/18/2016 ascorbic acid, vitamin C, (Vitamin C) 1,000 mg tablet Take 1,000 mg by mouth 3 (three) times a day. cranberry fruit (cranberry) 450 mg tablet Take 2 tablets by mouth daily. cranberry-vitamin C-mannose 250-30-50 mg tablet,chewable Chew 4 tablets daily. cyclobenzaprine (FlexeriL) 10 mg tabletIndications :Pain Back Thoracic,Muscle Spasm Of Back Take 1 tablet (10 mg total) by mouth 3 (three) times a day as needed for muscle spasms. 90 tablet 1 02/12/2024 5:19 PM CDT 12/16/2023 diclofenac sodium (VOLTAREN) 1 % gel Apply 2 g topically 4 (four) times a day as needed. Apply to back for arthritis. 02/07/2023 DULoxetine (Cymbalta) [address] capsuleIndication s:Neuralgia Intercostal Take 1 capsule (30 mg total) by mouth daily with 60mg for a total of 90mg 90 capsule 3 05/11/2024 1:26 PM AGRICULTURE ENGINEER 05/10/2024 DULoxetine (Cymbalta) [address] capsuleIndication s:Pain Back Thoracic Take 1 capsule (60 mg total) by mouth daily. 90 capsule 3 05/11/2024 1:26 PM AGRICULTURE ENGINEER 05/10/2024 estradioL (Estrace) 0.1 mg/g (0.01%) vaginal cream Insert 1 g into the vagina 2 (two) times a week. 42.5 g 6 06/04/2024 1:31 PM AGRICULTURE ENGINEER 06/03/2024 losartan (Cozaar) 50 mg tabletIndications :Hypertension Essential Primary,Hypokalem ia TAKE 1 TABLET BY MOUTH DAILY 90 tablet 3 06/02/2024 10:59 AM AGRICULTURE ENGINEER 03/03/2024 methenamine (Hiprex) 1 gram tabletIndications :Cystitis Recurrent Take 1 tablet (1 g total) by mouth 2 (two) times a day. 180 tablet 06/03/2024 12:59 PM AGRICULTURE ENGINEER 06/02/2024 pregabalin (Lyrica) 150 mg capsuleIndication s:Pain Back Thoracic Take 1 capsule (150 mg total) by mouth 2 (two) times a day. 180 capsule 2 06/02/2024 10:59 AM AGRICULTURE ENGINEER 03/03/2024 rosuvastatin (Crestor) 10 mg tablet TAKE 1 TABLET BY MOUTH DAILY 90 tablet 3 06/02/2024 10:59 AM AGRICULTURE ENGINEER 03/03/2024 semaglutide (Wegovy) 2.4 mg/0.75 mL pen injector injectionIndicati ons:Obesity Body Mass Index 30-39.9 Adult Inject 2.4 mg under the skin every 7 (seven) days. 3 mL 11 07/06/2024 10:49 AM CDT 08/29/2023 5 topiramate (Topamax) 100 mg tablet TAKE 1 TABLET BY MOUTH DAILY 100 tablet 3 06/22/2024 7:12 AM AGRICULTURE ENGINEER 12/16/2023 verapamiL (Calan-SR) 240 mg ER tablet TAKE 1 TABLET BY MOUTH DAILY 90 tablet 3 04/17/2024 6:39 AM AGRICULTURE ENGINEER 01/13/2024 nitrofurantoin monohydrate (Macrobid) 100 mg capsuleIndication s:Acute Cystitis Without Hematuria Take 1 capsule (100 mg total) by mouth 2 (two) times a day. 10 capsule 06/25/2024 4:00 PM AGRICULTURE ENGINEER 06/25/2024 5 documented as of this encounter Plan of Treatment Upcoming Encounters Date Type Department Care Team (Late st Contact Info) Description 08/09/2024 11:50 AM CDT Appointment Department of Radiology in [place], [place] [address] [place] [phone] Lilliam Ryan M.D. [address] [place] [phone] documented as of this encounter Procedures Procedure Name Priority Date/Time Associated Diagnosis Comments DIPSTICK, U Routine 07/05/2024 12:24 PM CDT MICROSCOPIC AUTOMATED Routine 07/05/2024 12:24 PM CDT BACTERIAL CULTURE, AEROBIC + SUSC, URINE Routine 07/05/2024 12:24 PM CDT Symptom Urinary PH, U Routine 07/05/2024 12:24 PM CDT OSMOLALITY, U Routine 07/05/2024 12:24 PM CDT URINALYSIS WITH MICROSCOPIC Routine 07/05/2024 12:24 PM CDT Symptom Urinary documented in this encounter Results * (ABNORMAL) Dipstick, Urine (07/05/2024 12:24 PM [...] O RDERABLES Final Result Performing Organization Address City/[facility]/ZIP Co de Phone Number [facility] 200 [place] [address] * Osmolality, Urine (07/05/2024 12:24 PM CDT) Pathologist [facility] Osmolality, U 526 150 - 1150 mOsm/kg 07/05/2024 2:44 PM CDT DTL Urine 07/05/2024 12:2 4 PM CDT 07/05/2024 1:30 PM CDT Maria Isabel Almaraz APRN, Sari.N.P., M.S. LAB URINE O RDERABLES Final Result Performing Organization Address City/[facility]/ZIP Co de Phone Number [facility] [address] [place] [place] [address] * pH, Urine (07/05/2024 12:24 PM CDT) Pathologist [facility] pH, U 6.0 4.5 - 8.0 07/05/2024 2:4 4 PM CDT DTL Urine 07/05/2024 12:2 4 PM CDT 07/05/2024 1:30 PM CDT Maria Isabel Almaraz APRN, C.N.P., M.S. LAB URINE O RDERABLES Final Result Performing Organization Address City/[facility]/ZIP Co de Phone Number [facility] 200 [place] [address] * Microscopic Automated (07/05/2024 12:24 PM CDT) Pathologist [facility] Microscopy Normal 07/05/2024 1:52 PM CDT DTL RBC <3 <3 /hpf 07/05/2024 1:52 PM CDT DTL WBC 1-3 /hpf 07/05/2024 1:52 PM CDT DTL Comment: ----REFERENCE VALUE---- <4 (Males) <11 (Females) Crystals SEE COMMENT 07/05/2024 1:52 PM CDT DTL Comment:Calcium Oxalate erika tals present Urine 07/05/2024 12:2 4 PM CDT 07/05/2024 1:30 PM CDT Sari Constantino APRN.N.P., M.S. LAB URINE O RDERABLES Final Result Performing Organization Address City/[facility]/ZIP Co de Phone Number [facility] 200 [place] [address], [place] [address] * Urinalysis, with Microscopic: Urine, Midstream (07/05/2024 12:24 PM CDT) Pathologist [facility] Source Urine, Urine, Midstream 07/05/2024 1:30 PM [...] 12:24 PM CDT 07/05/2024 1:30 PM CDT Marcy Constantino APRNNDon., M.S. LAB URINE O RDERABLES Final Result Performing Organization Address City/[facility]/ZIP Co de Phone Number [facility] 200 [place] [address], [facility] [place] [address] * Bacterial Culture, Aerobic + Susceptibility, Urine (07/05/2024 12:24 PM CDT) Urine Culture No growth after 1 day of incubation. 07/06/2024 9:28 AM CDT DTL Urine (Urine, Midstream) 07/05/2024 12:24 PM CDT 07/05/2024 2:08 PM CDT Comment:Specimen Source Site : Urine Marcy Constantino APRNN. P., M.S. LAB MICROBIOLOGY - GENERAL ORDERABLES Final Result Performing Organization Address City/[facility]/ZIP Co de Phone Number [facility] 200 [place] [address], [facility] [place] [address] documented in this encounter Visit Diagnoses Diagnosis Symptom Urinary Screening Mammogram Breast Cancer documented in this encounter Additional Health Concerns Assessment Noted Time PHQ-9 Depression Total Score: 5 08/08/19 21 9:41 AM CDT documented as of this encounter Care Teams Marketing Business Analyst Relationship Specialty Start Date End Date Lilliam Ryan M.D. [address] [place] [phone] PCP - General Family Medicine 05/29/16 documented as of this encounter
--- OUTSIDE RECORDS SUMMARY | 2024-07-29 22:54 | XMS_ITS | Encounter Summary ---
Author Organization [facility] Address [address] [place] [address] Care Team Providers Care Orthopedic Assistant Name Role Phone Lilliam Ryan M.D. Primary Care Provider [phone] Reason for Referral * Outpatient (Routine) - Closed Specialty Diagnoses / Procedures Referred By Em t Referred To Contact Obstetrics and Gynecology Ana Mckeon APRN, C.N.P., D.N.P. [address] [place] [phone] Phone: tel: fax: [facility] Referral ID Status Reason Start Date Expiration Date Visits Re quested Visits Authorized [id number] Closed 06/10/2024 12/10/2025 1 1 RDOUS WASTE MANAGEMENT SPECIALIST Encounter Details Date Type Department Care Team (Latest Contact Info) Description 06/10/2024 Results Follow-Up Department of Obstetrics and Gynecology in [place], [place] [address] [place] [phone] Ana Mckeon APRN, C.N.P., D.N.P. [address] [place] [phone] ThinPrep w/HPV Co-Test Screen, Physician Interpretation Screen Social History Tobacco Use Types Packs/Day Years Used Date Smoking Tobacco: Former Cigarettes 0.8 45 Q uit: 03/01/2024 Passive Smoke Exposure: Never Smokeless Tobacco: Never Alcohol Use Standard Drinks/Week Comments No 0 (1 standard drink = 0.6 oz pur e alcohol) [facility] Utilities Answer Date Recorded In the [...] How often do you attend chur or sikhism services? More than 4 times per year 05/23/2022 Do you belong to any clubs o r organizations such as pentecostal groups, unions, fraternal or athletic groups, or [...] Answer Date Recorded PHQ-2 Score 0 06/06/2024 [facility] [place] of Occupat ional Health - Occupational Stress [...] your living situation today? I have a [facility] place to live 07/27/2023 Education Answer Date Recorded What is the highest level of school you have completed or the highest degree you have received? Some college, no degree 05/23/2022 Comments No Sex and Gender Information Value Date Recorded Sex Assigned at Female 09/16/2017 3:29 PM CDT Legal Sex Female 7:11 AM HAZARDOUS WASTE MANAGEMENT SPECIALIST Gender Identity Female 09/16/2017 3:29 PM CDT Sexual Orientation Straight 09/16/2017 3: 29 PM CDT documented as of this encounter Plan of Treatment Upcoming Encounters Date Type Department Care Team (Late st Contact Info) Description 08/09/2024 11:50 AM CDT Appointment Department of Radiology in [place], [place] [address] [place] [phone] Lilliam Ryan M.D. [address] [place] [phone] Scheduled Referrals Name Type Priority Associated Diagnoses Order Schedule Obstetrics and Gynecology office visit (clinic) Outpatient Referral Routine Expected: 06/10/2024, Expires: 09/07/2025 documented as of this encounter Visit Diagnoses Not on filedocumented in this encounter Additional Health Concerns Assessment Noted Time PHQ-9 Depression Total Score: 5 08/08/19 21 9:41 AM CDT documented as of this encounter Care Teams Orthopedic Assistant Relationship Specialty Start Date End Date Lilliam Ryan M.D. [address] [place] [phone] PCP - General Family Medicine 05/29/16 documented as of this encounter
--- OUTSIDE RECORDS SUMMARY | 2024-07-29 22:54 | XMS_ITS | Encounter Summary ---
Author Organization [facility] Address [address] [place] [address] Care Team Providers Care Termite Renewal Inspector Name Role Phone Lilliam Ryan M.D. Primary Care Provider Encounter Details Date Type Department Care Team (Late st Contact Info) Description 07/06/2024 Results Follow-Up Department of Family Medicine, [facility], in [place], [place] [address] [place] [phone] Lilliam Ryan M.D. [address] [place] [phone] Urinalysis, with Microscopic: Urine, Midstream, Microscopic Automated, pH, Urine, Additional followed-up results: 2 Social History Tobacco Use Types Packs/Day Years Used Date Smoking Tobacco: Former Cigarettes 0.8 45 Q uit: 03/01/2024 Passive Smoke Exposure: Never Smokeless Tobacco: Never Alcohol Use Standard Drinks/Week Comments Not Currently 0 (1 standard drink = 0.6 oz pur e alcohol) [facility] Utilities Answer Date Recorded In the past 12 months has e [employer], gas, oil, or water [employer] threatened to shut off services in your [...] often do you attend chur ch or taoism services? More than 4 times per year 05/23/2022 Do you belong to any clubs o r organizations such as shinto groups, unions, fraternal or athletic groups, or [...] Answer Date Recorded PHQ-2 Score 0 06/06/2024 [facility] [place] of Occupat ional Health - Occupational Stress [...] your living situation today? I have a [facility] place to live 07/27/2023 Education Answer Date Recorded What is the highest level of school you have completed or the highest degree you have received? Some college, no degree 05/23/2022 Comments No Sex and Gender Information Value Date Recorded Sex Assigned at Female 09/16/2017 3:29 PM CDT Legal Sex Female 7:11 AM TARGET WORKER Gender Identity Female 09/16/2017 3:29 PM CDT Sexual Orientation Straight 09/16/2017 3: 29 PM CDT documented as of this encounter Plan of Treatment Upcoming Encounters Date Type Department Care Team (Late st Contact Info) Description 08/09/2024 11:50 AM CDT Appointment Department of Radiology in [place], [place] [address] [place] [phone] Lilliam Ryan M.D. [address] [place] [phone] documented as of this encounter Visit Diagnoses Not on filedocumented in this encounter Additional Health Concerns Assessment Noted Time PHQ-9 Depression Total Score: 5 08/08/19 21 9:41 AM CDT documented as of this encounter Care Teams Termite Renewal Inspector Relationship Specialty Start Date End Date Lilliam Ryan M.D. [address] [place] [phone] PCP - General Family Medicine 05/29/16 documented as of this encounter
--- OUTSIDE RECORDS SUMMARY | 2024-07-29 22:54 | XMS_ITS | Encounter Summary ---
Author Organization [facility] Address [address] [place] [address] Care Team Providers Care Treater Name Role Phone Lilliam Ryan M.D. Primary Care Provider Encounter Details Date Type Department Care Team (Late st Contact Info) Description 06/24/2024 Patient Self-Triage [facility] Symptom Director Of Casino Marketing, Provider Social History Tobacco Use Types Packs/Day Years Used Date Smoking Tobacco: Former Cigarettes 0.8 45 Q uit: 03/01/2024 Passive Smoke Exposure: Never Smokeless Tobacco: Never Alcohol Use Standard Drinks/Week Comments No 0 (1 standard drink = 0.6 oz pur e alcohol) [facility] Utilities Answer Date Recorded In the past 12 months has [facility] [employer], gas, oil, or water [employer] threatened to shut off services in your [...] often do you attend chur ch or voodoo services? More than 4 times per year 05/23/2022 Do you belong to any clubs o r organizations such as evangelical groups, unions, fraternal or athletic groups, or [...] Answer Date Recorded PHQ-2 Score 0 06/06/2024 [facility] - Occupational Stress Questionnaire Answer [...] your living situation today? I have a [facility] place to live 07/27/2023 Education Answer Date Recorded What is the highest level of school you have completed or the highest degree you have received? Some college, no degree 05/23/2022 Comments No Sex and Gender Information Value Date Recorded Sex Assigned at Female 09/16/2017 3:29 PM CDT Legal Sex Female 7:11 AM X RAY CONSULTANT Gender Identity Female 09/16/2017 3:29 PM CDT Sexual Orientation Straight 09/16/2017 3: 29 PM CDT documented as of this encounter Plan of Treatment Upcoming Encounters Date Type Department Care Team (Late st Contact Info) Description 08/09/2024 11:50 AM CDT Appointment Department of Radiology in [place], [place] [address] [place] [phone] Lilliam Ryan M.D. [address] [place] [phone] documented as of this encounter Visit Diagnoses Not on filedocumented in this encounter Additional Health Concerns Assessment Noted Time PHQ-9 Depression Total Score: 5 08/08/19 21 9:41 AM CDT documented as of this encounter Care Teams Treater Relationship Specialty Start Date End Date Lilliam Ryan M.D. [address] [place] [phone] PCP - General Family Medicine 05/29/16 documented as of this encounter
--- OUTSIDE RECORDS SUMMARY | 2024-07-29 22:54 | XMS_ITS | Encounter Summary ---
Author Organization [facility] Address [address] [place] [address] Care Team Providers Care Commercial Truck Driver Name Role Phone Lilliam Ryan M.D. Primary Care Provider [phone] Reason for Visit * Reason Comments Urinary Tract Infection Encounter Details Date Type Department Care Team (Late st Contact Info) Description 06/25/2024 3:30 PM VENEREAL DISEASE INVESTIGATOR Office Visit Department of Family Medicine, [facility], in [place], [place] [address] [place] [phone] Corby Ly M.D. [address] [place] [phone] Acute Cystitis Without Hematuria (Primary Dx); Cystitis Recurrent Social History Tobacco Use Types Packs/Day Years Used Date Smoking Tobacco: Former Cigarettes 0.8 45 Q uit: 03/01/2024 Passive Smoke Exposure: Never Smokeless Tobacco: Never Tobacco Cessation:Counseling Given: Not Answered Alcohol Use Standard Drinks/Week Comments Not Currently 0 (1 standard drink = 0.6 oz pur e alcohol) [facility] Utilities Answer Date Recorded In the past [...] often do you attend chur ch or yarsanism services? More than 4 times per year 05/23/2022 Do you belong to any clubs o r organizations such as sikhism groups, unions, fraternal or athletic groups, or [...] Answer Date Recorded PHQ-2 Score 0 06/06/2024 [facility] [place] of Occupat ional Health - Occupational Stress [...] your living situation today? I have a [facility] place to live 07/27/2023 Education Answer Date Recorded What is the highest level of school you have completed or the highest degree you have received? Some college, no degree 05/23/2022 Comments No Sex and Gender Information Value Date Recorded Sex Assigned at Female 09/16/2017 3:29 PM CDT Legal Sex Female 7:11 AM VENEREAL DISEASE INVESTIGATOR Gender Identity Female 09/16/2017 3:29 PM CDT Sexual Orientation Straight 09/16/2017 3: 29 PM CDT documented as of this encounter Last Filed Vital Signs Vital Sign Reading Time Taken Comments Blood Pressure 117/80 06/25/2024 3:18 PM VENEREAL DISEASE INVESTIGATOR Pulse 77 06/25/2024 3:18 PM VENEREAL DISEASE INVESTIGATOR Temperature 36.5 C (97.7 F) 06/25/2024 3:18 PM VENEREAL DISEASE INVESTIGATOR Respiratory Rate - - Oxygen Saturation - - Inhaled Oxygen Concentration - - Weight 65 kg (143 lb 4.8 oz) 06/25/2024 3:18 PM VENEREAL DISEASE INVESTIGATOR Height 162.5 cm (5' 3.98) 06/25/2024 3:18 PM CS T Body Mass Index 24.62 06/25/2024 3:18 PM VENEREAL DISEASE INVESTIGATOR documented in this encounter Progress Notes * Corby Ly M.D. - 06/25/2024 3:30 PM CST DATE OF VISIT: 06/25/2024 SUBJECTIVE CHIEF COMPLAINT / REASON FOR VISIT Deanna Lindsay is a 63 y.o. female who presents for evaluation of Urinary Tract Infection. The patient verbally consented to an audio recording of their visit to assist with the completion of documentation. History of Present Illness Mrs. Deanna Neil is a 63 year old female with recurrent urinary tract infections who presents with urinary urgency and lower abdominal pain. She has been experiencing urinary urgency and lower abdominal pain for the past three days. There is no visible hematuria, although she notes that Azo may affect the color of her urine. A urinalysis revealed nitrites and white blood cells, indicating infection, with a trace of blood attributed to long-standing skin irritation. She has a history of urinary tract infections, with the last documented infection caused by E. coliin November, which was susceptible to multiple antibiotics. She has previously been treated with Macrobid and cefdinir. She has a known allergy to amoxicillin but not to penicillin, and she can tolerate cephalosporins. A past test confirmed the allergy is specific to amoxicillin. She recalls a serious kidney infection in the past and a disruptive episode of frequent urination during a civic theaterevent. She also experienced urinary issues following hip replacement surgery, possibly due to decreased urination frequency at that time. Her has been diagnosed with multiple myeloma and is currently on a clinical trial. . 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 Her daughter is moving to [place], which will create a significant change in her routine. OBJECTIVE VITAL SIGNS BP 117/80 (BP Location: Left arm, Patient Position: Sitting, Cuff Size: Regular) Pulse 77 Temp 36.5 ??C (Tympanic) Ht 162.5 cm Wt 65 kg BMI 24.62 kg/m?? Physical Exam Physical Exam Physical Exam Alert cooperative female in no acute distress Abdomen: No flank pain. Mild suprapubic discomfort ASSESSMENT/ PLAN Acute Cystitis Without Hematuria Orders: nitrofurantoin monohydrate (Macrobid) 100 mg capsule; Take 1 capsule (100 mg total) by mouth 2 (two) times a day. Bacterial Culture, Aerobic + Susceptibility, Urine Urinary Tract Infection Symptoms of urgency and lower abdominal discomfort for 3 days. No visible hematuria. History of UTIs, with the last one in November caused by E. Coli. Allergy to amoxicillin and sulfa drugs, but cephalosporins are tolerated. -Start Macrobid (Nitrofurantoin) empirically and send urine for culture and sensitivity. -Refill available for patient to shredder picker after 5 days if needed. -Review culture results on Friday and adjust treatment if necessary. Cystitis Recurrent Discuss possible methods to avoid future infections. She is already on a good program but she may want to consider the supplement [employer] REAL DISEASE INVESTIGATOR documented in this encounter Miscellaneous Notes * Assessment & Plan Note - Corby Ly M.D. - 06/25/2024 3:30 PM VENEREAL DISEASE INVESTIGATOR Associated Problem(s): Cystitis Recurrent Discuss possible methods to avoid future infections. She is already on a good program but she may want to consider the supplement [employer] REAL DISEASE INVESTIGATOR documented in this encounter Plan of Treatment Upcoming Encounters Date Type Department Care Team (Late st Contact Info) Description 08/09/2024 11:50 AM CDT Appointment Department of Radiology in [place], [place] [address] [place] [address] Lilliam Ryan M.D. [address] [place] [phone] documented as of this encounter Procedures Procedure Name Priority Date/Time Associated Diagnosis Comments WA URINALYSIS AUTO WO MICRO Routine 06/25/2024 3:48 PM VENEREAL DISEASE INVESTIGATOR BACTERIAL CULTURE, AEROBIC + SUSC, URINE Routine 06/25/2024 3:48 PM VENEREAL DISEASE INVESTIGATOR Acute Cystitis Without Hematuria documented in this encounter Results * (ABNORMAL) Bacterial Culture, Aerobic + Susceptibility, Urine (06/25/2024 3:48 PM VENEREAL DISEASE INVESTIGATOR) Urine Culture ESCHERICHIA COLI >100,000 cfu/mL (A) 06/28/2024 12:54 PM VENEREAL DISEASE INVESTIGATOR DTL Urine Culture ESCHERICHIA COLI 10,000-100,000 cfu/mL (A) 06/28/2024 12:54 PM VENEREAL DISEASE INVESTIGATOR DTL Urine (Urine, Midstream) 06/25/2024 3:48 PM VENEREAL DISEASE INVESTIGATOR 06/25/2024 5:27 PM VENEREAL DISEASE INVESTIGATOR Comment:Specimen Source Site : Urine Narrative Organism Antibiotic Method Susceptibility Escherichia coli Ampicillin SUSCEPTIBILITY, DEIDRE (MCG/ML) 8 mcg/mL: Susceptible Escherichia coli Meropenem SUSCEPTIBILITY, DEIDRE (MCG/ML) <=0.12 mcg/mL: Susceptible Escherichia coli Ertapenem SUSCEPTIBILITY, DEIDRE (MCG/ML) <=0.25 mcg/mL: Susceptible Escherichia coli Piperacillin + Tazobactam SUSCE PTIBILITY, DEIDRE (MCG/ML) <=8/4 mcg/mL: Susceptible Escherichia coli Ciprofloxacin SUSCEPTIBILITY, DEIDRE (MCG/ML) <=0.25 mcg/mL: Susceptible Escherichia coli Levofloxacin SUSCEPTIBILITY, DEIDRE (MCG/ML) <=0.5 mcg/mL: Susceptible Escherichia coli Cefazolin SUSCEPTIBILITY, DEIDRE (MCG/ML) <=2 mcg/mL: Susceptible Escherichia coli Ceftriaxone SUSCEPTIBILITY, DEIDRE (MCG/ML) <=1 mcg/mL: Susceptible Escherichia coli Ceftazidime SUSCEPTIBILITY, DEIDRE (MCG/ML) <=4 mcg/mL: Susceptible Escherichia coli Cefepime SUSCEPTIBILITY, DEIDRE (MCG/ML) <=2 mcg/mL: Susceptible Escherichia coli Cefazolin (Uncomplic ated UTI) SUSCEPTIBILITY, DEIDRE (MCG/ML) <=2 mcg/mL: Susceptible Comment: The interpretation applies to uncomplicated urinary tract infections only. It also applies to these oral cephalosporins: cefuroxime, cephalexin, and cefprozil. Escherichia coli Cefdinir SUSCEPTIBILITY, DEIDRE (MCG/ML) <=1 mcg/mL: Susceptible Escherichia coli Amikacin SUSCEPTIBILITY, DEIDRE (MCG/ML) <=4 mcg/mL: Susceptible Escherichia coli Gentamicin SUSCEPTIBILITY, DEIDRE (MCG/ML) <=1 mcg/mL: Susceptible Escherichia coli Tobramycin SUSCEPTIBILITY, DEIDRE (MCG/ML) <=1 mcg/mL: Susceptible Escherichia coli Aztreonam SUSCEPTIBILITY, DEIDRE (MCG/ML) <=4 mcg/mL: Susceptible Escherichia coli Trimethoprim + Sulfamethoxazole SUSCEPTIBILITY, DEIDRE (MCG/ML) <=0.5/9.5 mcg/mL: Susceptible Escherichia coli Nitrofurantoin SUSCEPTIBILITY, DEIDRE (MCG/ML) <=32 mcg/mL: Susceptible Escherichia coli Fosfomycin SUSCEPTIBILITY, DEIDRE (MCG/ML) <=64 mcg/mL: Susceptible Escherichia coli Ampicillin SUSCEPTIBILITY, DEIDRE (MCG/ML) 8 mcg/mL: Susceptible Escherichia coli Meropenem SUSCEPTIBILITY, DEIDRE (MCG/ML) <=0.12 mcg/mL: Susceptible Escherichia coli Ertapenem SUSCEPTIBILITY, DEIDRE (MCG/ML) <=0.25 mcg/mL: Susceptible Escherichia coli Piperacillin + Tazobactam SUSCE PTIBILITY, DEIDRE (MCG/ML) <=8/4 mcg/mL: Susceptible Escherichia coli Ciprofloxacin SUSCEPTIBILITY, DEIDRE (MCG/ML) <=0.25 mcg/mL: Susceptible Escherichia coli Levofloxacin SUSCEPTIBILITY, DEIDRE (MCG/ML) <=0.5 mcg/mL: Susceptible Escherichia coli Cefazolin SUSCEPTIBILITY, DEIDRE (MCG/ML) <=2 mcg/mL: Susceptible Escherichia coli Ceftriaxone SUSCEPTIBILITY, DEIDRE (MCG/ML) <=1 mcg/mL: Susceptible Escherichia coli Ceftazidime SUSCEPTIBILITY, DEIDRE (MCG/ML) <=4 mcg/mL: Susceptible Escherichia coli Cefepime SUSCEPTIBILITY, DEIDRE (MCG/ML) <=2 mcg/mL: Susceptible Escherichia coli Cefazolin (Uncomplic ated UTI) SUSCEPTIBILITY, DEIDRE (MCG/ML) <=2 mcg/mL: Susceptible Comment: The interpretation applies to uncomplicated urinary tract infections only. It also applies to these oral cephalosporins: cefuroxime, cephalexin, and cefprozil. Escherichia coli Cefdinir SUSCEPTIBILITY, DEIDRE (MCG/ML) <=1 mcg/mL: Susceptible Escherichia coli Amikacin SUSCEPTIBILITY, DEIDRE (MCG/ML) 16 mcg/mL: Resistant Escherichia coli Gentamicin SUSCEPTIBILITY, DEIDRE (MCG/ML) 2 mcg/mL: Susceptible Escherichia coli Tobramycin SUSCEPTIBILITY, DEIDRE (MCG/ML) 2 mcg/mL: Susceptible Escherichia coli Aztreonam SUSCEPTIBILITY, DEIDRE (MCG/ML) <=4 mcg/mL: Susceptible Escherichia coli Trimethoprim + Sulfamethoxazole SUSCEPTIBILITY, DEIRDE (MCG/ML) <=0.5/9.5 mcg/mL: Susceptible Escherichia coli Nitrofurantoin SUSCEPTIBILITY, DEIDRE (MCG/ML) <=32 mcg/mL: Susceptible Escherichia coli Fosfomycin SUSCEPTIBILITY, DEIDRE (MCG/ML) <=64 mcg/mL: Susceptible Corby Ly M.D. LAB MICROBIOLOGY - GENERAL ORDERABLES Final Result Performing Organization Address [facility] Co de Phone Number [facility] [address] [place] [address], [facility] [address] [place] [address] * (ABNORMAL) Dipstick, POCT, Urine (06/25/2024 3:48 PM VENEREAL DISEASE INVESTIGATOR) Pathologist [facility] Glucose, POCT, U 100(A) Negative mg/dL 06/28/2024 10:02 AM VENEREAL DISEASE INVESTIGATOR PCDT Ketone, POCT, U Trace(A) Negative mg/dL 06/28/2024 10:02 AM VENEREAL DISEASE INVESTIGATOR PCDT Specific [place], POCT, U 1.010 1.005 - 1.030 06/28/2024 10:02 AM VENEREAL DISEASE INVESTIGATOR PCDT Blood, POCT, U Trace(A) Negative 06/28/2024 10:02 AM VENEREAL DISEASE INVESTIGATOR PCDT pH, POCT, Urine 5.0 5.0 - 8.0 06/28/2024 10:02 AM VENEREAL DISEASE INVESTIGATOR PCDT Protein, POCT, U 30(A) Negative mg/dL 06/28/2024 10:02 AM VENEREAL DISEASE INVESTIGATOR PCDT Nitrites, POCT, U Positive( A) Negative 06/28/2024 10:02 AM VENEREAL DISEASE INVESTIGATOR PCDT Leukocytes, POCT, U Large(A) Negative 06/28/2024 10:02 AM VENEREAL DISEASE INVESTIGATOR PCDT Urine 06/25/2024 3:48 PM VENEREAL DISEASE INVESTIGATOR 06/28/2024 10:02 AM VENEREAL DISEASE INVESTIGATOR Unknown Provider LAB POCT ORDERABLES - DEVICE Fi nal Result Performing Organization Address [facility]/ZIP Co de Phone Number [facility] [address] [place] [address], [facility] PCDT [facility] POC 200 [place] [address] documented in this encounter Visit Diagnoses Diagnosis Acute Cystitis Without Hematuria- Primary Cystitis Recurrent Screening Mammogram Breast Cancer documented in this encounter Additional Health Concerns Assessment Noted Time PHQ-9 Depression Total Score: 5 08/08/19 21 9:41 AM CDT documented as of this encounter Care Teams Commercial Truck Driver Relationship Specialty Start Date End Date Lilliam Ryan M.D. [address] [place] [phone] PCP - General Family Medicine 05/29/16 documented as of this encounter
--- OUTSIDE RECORDS SUMMARY | 2024-07-29 22:54 | XMS_ITS | Encounter Summary ---
Author Organization [facility] Address [address] [place] [address] Care Team Providers Care Registered Client Associate Name Role Phone Lilliam Ryan M.D. Primary Care Provider Reason for Visit * Reason Onset Date Comments Med Question 07/02/2024 Encounter Details Date Type Department Care Team (Late st Contact Info) Description 07/02/2024 Clinical Communication Department of Family Medicine, [facility], in [place], [place] [address] [place] [phone] Lilliam Ryan M.D. [address] [place] [phone] Med Question Social History Tobacco Use Types Packs/Day Years Used Date Smoking Tobacco: Former Cigarettes 0.8 45 Q uit: 03/01/2024 Passive Smoke Exposure: Never Smokeless Tobacco: Never Alcohol Use Standard Drinks/Week Comments Not Currently 0 (1 standard drink = 0.6 oz pur e alcohol) [facility] Utilities Answer Date Recorded In the past 12 months has e [employer], gas, oil, or water company threatened to [...] How often do you attend chur or protestant services? More than 4 times per year [...] Answer Date Recorded PHQ-2 Score 0 06/06/2024 [facility] [place] of Occupat ional Health - Occupational Stress [...] your living situation today? I have a [facility] place to live 07/27/2023 Education Answer Date Recorded What is the highest level of school you have completed or the highest degree you have received? Some college, no degree 05/23/2022 Comments No Sex and Gender Information Value Date Recorded Sex Assigned at Female 09/16/2017 3:29 PM CDT Legal Sex Female 7:11 AM MANAGER UROLOGY Gender Identity Female 09/16/2017 3:29 PM CDT Sexual Orientation Straight 09/16/2017 3: 29 PM CDT documented as of this encounter Plan of Treatment Upcoming Encounters Date Type Department Care Team (Late st Contact Info) Description 08/09/2024 11:50 AM CDT Appointment Department of Radiology in [place], [place] 200 [place] [address] Lilliam Ryan M.D. 200 [place] [phone] documented as of this encounter Visit Diagnoses Not on filedocumented in this encounter Additional Health Concerns Assessment Noted Time PHQ-9 Depression Total Score: 5 08/08/19 21 9:41 AM CDT documented as of this encounter Care Teams Registered Client Associate Relationship Specialty Start Date End Date Lilliam Ryan M.D. [address] [place] [phone] PCP - General Family Medicine 05/29/16 documented as of this encounter
--- OUTSIDE RECORDS SUMMARY | 2024-07-29 22:54 | XMS_ITS | Encounter Summary ---
Author Organization [facility] Address [address] [place] [address] Care Team Providers Care Glove Parts Inspector Name Role Phone Lilliam Ryan M.D. Primary Care Provider [phone] Reason for Visit * Reason Onset Date Comments Order Request 06/10/2024 Encounter Details Date Type Department Care Team (Latest Contact Info) Description 06/10/2024 Clinical Communication Department of Otorhinolaryngology in [place], [place] [address] [place] [phone] Mary Beth Clancy, LUIS, P.A.-C. [address] [place] [address] Order Request Social History Tobacco Use Types Packs/Day Years Used Date Smoking Tobacco: Former Cigarettes 0.8 45 Q uit: 03/01/2024 Passive Smoke Exposure: Never Smokeless Tobacco: Never Alcohol Use Standard Drinks/Week Comments No 0 (1 standard drink = 0.6 oz pur e alcohol) [facility] Utilities Answer Date Recorded In the past 12 months has e [employer], gas, oil, or water company threatened to [...] How often do you attend chur or restorationism services? More than 4 times per year 05/23/2022 Do you belong to any clubs o r organizations such as judaism groups, unions, fraternal or athletic groups, or [...] Answer Date Recorded PHQ-2 Score 0 06/06/2024 [facility] [place] of Occupat ional Health - Occupational Stress [...] your living situation today? I have a [facility] place to live 07/27/2023 Education Answer Date Recorded What is the highest level of school you have completed or the highest degree you have received? 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 200 [place] [address] documented as of this encounter Visit Diagnoses Not on filedocumented in this encounter Additional Health Concerns Assessment Noted Time PHQ-9 Depression Total Score: 5 08/08/19 21 9:41 AM CDT documented as of this encounter Care Teams Glove Parts Inspector Relationship Specialty Start Date End Date Lilliam Ryan M.D. [address] [place] [address] PCP - General Family Medicine 05/29/16 documented as of this encounter
--- OUTSIDE RECORDS SUMMARY | 2024-07-29 22:54 | XMS_ITS | Encounter Summary ---
Author Organization [facility] Address [address] [place] [address] Care Team Providers Care Passenger Barge Master Name Role Phone Lilliam Ryan M.D. Primary Care Provider Encounter Details Date Type Department Care Team (Late st Contact Info) Description 06/24/2024 12:40 PM INSURANCE ASSOCIATE E-Visit [facility] [address] [place] [phone] Ruma Kim, PRIYA, C.N.P. [address] [place] [phone] Express Care Online for Bladder Infection (female anatomy, age 12-65 years) Social History Tobacco Use Types Packs/Day Years Used Date Smoking Tobacco: Former Cigarettes 0.8 45 Q uit: 03/01/2024 Passive Smoke Exposure: Never Smokeless Tobacco: Never Alcohol Use Standard Drinks/Week Comments No 0 (1 standard drink = 0.6 oz pur e alcohol) [facility] Utilities Answer Date Recorded In the past [...] any clubs o r organizations such as denominational groups, unions, fraternal or athletic groups, or [...] 06/06/2024 [facility] of Occupat ional Health - Occupational Stress [...] your living situation today? I have a [facility] place to live 07/27/2023 Education Answer Date Recorded What is the highest level of school you have completed or the highest degree you have received? Some college, no degree 05/23/2022 Comments No Sex and Gender Information Value Date Recorded Sex Assigned at Female 09/16/2017 3:29 PM CDT Legal Sex Female 7:11 AM INSURANCE ASSOCIATE Gender Identity Female 09/16/2017 3:29 PM CDT Sexual Orientation Straight 09/16/2017 3: 29 PM CDT documented as of this encounter Plan of Treatment Upcoming Encounters Date Type Department Care Team (Late st Contact Info) Description 08/09/2024 11:50 AM CDT Appointment Department of Radiology in [place], [place] 200 [place] [address] Lilliam Ryan M.D. [address] [place] [address] documented as of this encounter Visit Diagnoses Diagnosis Symptom Urinary- Primary Screening Mammogram Breast Cancer documented in this encounter Additional Health Concerns Assessment Noted Time PHQ-9 Depression Total Score: 5 08/08/19 21 9:41 AM CDT documented as of this encounter Care Teams Passenger Barge Master Relationship Specialty Start Date End Date Lilliam Ryan M.D. [address] [place] [phone] PCP - General Family Medicine 05/29/16 documented as of this encounter
--- OUTSIDE RECORDS SUMMARY | 2024-07-29 22:54 | XMS_ITS | Encounter Summary ---
Author Organization [facility] Address [address] [place] [address] Care Team Providers Care Emergency Registrar Name Role Phone Lilliam Ryan M.D. Primary Care Provider [phone] Reason for Referral * Outpatient (Routine) - Authorized Specialty Diagnoses / Procedures Referred By Contac t Referred To Contact Obstetrics and Gynecology Ana Mckeon APRN, C.N.P., D.N.P. [address] [place] [phone] Phone: tel: fax: [facility] Referral ID Status Reason Start Date Expiration Date V isits Requested Visits Authorized [id number] Authorized 06/29/2024 12/29/2025 1 1 ION WRITER Reason for Visit * Outpatient (Routine) - Closed Specialty Diagnoses / Procedures Referred By Contac t Referred To Contact Obstetrics and Gynecology Ana Mckeon APRN, C.N.P., D.N.P. [address] [place] [phone] Phone: tel: fax: [facility] Referral ID Status Reason Start Date Expiration Date Visits Re quested Visits Authorized [id number] Closed 06/10/2024 12/10/2025 1 1 Encounter Details Date Type Department Care Team (Late st Contact Info) Description 06/29/2024 2:00 PM CAPTION WRITER Office Visit Department of Obstetrics and Gynecology in [place], [place] 200 [place] [address] Ana Mckeon APRN, C.N.P., D.N.P. [address] [place] [phone] Pap Smear Examination (Primary Dx) Social History Tobacco Use Types Packs/Day Years Used Date Smoking Tobacco: Former Cigarettes 0.8 45 Q uit: 03/01/2024 Passive Smoke Exposure: Never Smokeless Tobacco: Never Alcohol Use Standard Drinks/Week Comments Not Currently 0 (1 standard drink = 0.6 oz pur e alcohol) [facility] [employer] Answer Date Recorded In the past 12 months has e [employer], gas, oil, or water [employer] threatened to shut off services in your [...] How often do you attend chur or islam services? More than 4 times per year 05/23/2022 Do you belong to any clubs o r organizations such as hindu groups, unions, fraternal or athletic groups, or [...] Answer Date Recorded PHQ-2 Score 0 06/06/2024 [facility] of Occupat ional Health - Occupational Stress [...] your living situation today? I have a [facility] place to live 07/27/2023 Education Answer Date Recorded What is the highest level of school you have completed or the highest degree you have received? Some college, no degree 05/23/2022 Comments No Sex and Gender Information Value Date Recorded Sex Assigned at Female 09/16/2017 3:29 PM CDT Legal Sex Female 7:11 AM CAPTION WRITER Gender Identity Female 09/16/2017 3:29 PM CDT Sexual Orientation Straight 09/16/2017 3: 29 PM CDT documented as of this encounter Progress Notes * Ana Mckeon APRN, C.N.P., D.N.P. - 06/29/2024 2:00 PM CST Appointment established in error. Patient will return in one year for follow-up pap smear. ION WRITER documented in this encounter Plan of Treatment Upcoming Encounters Date Type Department Care Team (Late st Contact Info) Description 08/09/2024 11:50 AM CDT Appointment Department of Radiology in [place], [place] [address] [place] [phone] Lilliam Ryan M.D. [address] [place] [address] Scheduled Referrals Name Type Priority Associated Diagnoses Order Schedule Obstetrics and Gynecology office visit (clinic) Outpatient Referral Routine Expected: 06/29/2025, Expires: 09/29/2025 documented as of this encounter Visit Diagnoses Diagnosis Pap Smear Examination- Primary Screening Mammogram Breast Cancer documented in this encounter Additional Health Concerns Assessment Noted Time PHQ-9 Depression Total Score: 5 08/08/19 21 9:41 AM CDT documented as of this encounter Care Teams Emergency Registrar Relationship Specialty Start Date End Date Lilliam Ryan M.D. 200 [place] [phone] PCP - General Family Medicine 05/29/16 documented as of this encounter
--- OUTSIDE RECORDS SUMMARY | 2024-07-29 22:54 | XMS_ITS | Encounter Summary ---
Author Organization [facility] Address [address] [place] [address] Care Team Providers Care Bagel Maker Name Role Phone Lilliam Ryan M.D. Primary Care Provider [phone] Encounter Details Date Type Department Care Team (Late st Contact Info) Description 07/02/2024 6:30 PM FORESTER AIDE E-Visit [facility] [address] [place] [phone] Odalys Barton, PRIYA, C.N.P., M.S.N. [address] [place] [phone] Express [facility] Online for Bladder Infection (female anatomy, age 12-65 years) Social History Tobacco Use Types Packs/Day Years Used Date Smoking Tobacco: Former Cigarettes 0.8 45 Q uit: 03/01/2024 Passive Smoke Exposure: Never Smokeless Tobacco: Never Alcohol Use Standard Drinks/Week Comments Not Currently 0 (1 standard drink = 0.6 oz pur e alcohol) [facility] Utilities Answer Date Recorded In [...] How often do you attend chur or mormonism services? More than 4 times per year 05/23/2022 Do you belong to any clubs o r organizations such as buddhist groups, unions, fraternal or athletic groups, or [...] Recorded PHQ-2 Score 0 06/06/2024 [facility] of Occupat ional Health - Occupational Stress [...] your living situation today? I have a [facility] place to live 07/27/2023 Education Answer Date Recorded What is the highest level of school you have completed or the highest degree you have received? Some college, no degree 05/23/2022 Comments No Sex and Gender Information Value Date Recorded Sex Assigned at Female 09/16/2017 3:29 PM CDT Legal Sex Female 7:11 AM FORESTER AIDE Gender Identity Female 09/16/2017 3:29 PM CDT Sexual Orientation Straight 09/16/2017 3: 29 PM CDT documented as of this encounter Plan of Treatment Upcoming Encounters Date Type Department Care Team (Late st Contact Info) Description 08/09/2024 11:50 AM CDT Appointment Department of Radiology in [place], [place] [address] [place] [address] Lilliam Ryan M.D. [address] [place] [address] documented as of this encounter Visit Diagnoses Diagnosis Symptom Urinary- Primary Screening Mammogram Breast Cancer documented in this encounter Additional Health Concerns Assessment Noted Time PHQ-9 Depression Total Score: 5 08/08/19 21 9:41 AM CDT documented as of this encounter Care Teams Bagel Maker Relationship Specialty Start Date End Date Lilliam Ryan M.D. [address] [place] [phone] PCP - General Family Medicine 05/29/16 documented as of this encounter
--- OUTSIDE RECORDS SUMMARY | 2024-07-29 22:54 | XMS_ITS | Encounter Summary ---
Author Organization [facility] Address [address] [place] [address] Care Team Providers Care Event Planner Name Role Phone Lilliam Ryan M.D. Primary Care Provider Reason for Visit * Reason Onset Date Comments Pre-visit Intake 06/28/2024 * Appointment Request (Routine) - Authorized Specialty Diagnoses / Procedures Referred By Contmarleni t Referred To Contact Gynecology Referral ID Status Reason Start Date Expiration Date V isits Requested Visits Authorized [id number] Authorized 06/24/2024 09/24/2025 1 1 Encounter Details Date Type Department Care Team (Latest Contact Info) Description 06/28/2024 2:00 PM PURCHASING ADMINISTRATOR Clinical Communication Virtual Review in [place], [place] 200 [place] [address] Pre-visit Intake Social History Tobacco Use Types Packs/Day Years Used Date Smoking Tobacco: Former Cigarettes 0.8 45 Q uit: 03/01/2024 Passive Smoke Exposure: Never Smokeless Tobacco: Never Tobacco Cessation:Counseling Given: Not Answered Alcohol Use Standard Drinks/Week Comments Not Currently 0 (1 standard drink = 0.6 oz pur e alcohol) [facility] Utilities Answer Date Recorded In the past 12 months has th e [employer], gas, oil, or water company threatened to [...] often do you attend chur ch or anabaptism services? More than 4 times per year 05/23/2022 Do you belong to any clubs o r organizations such as baptist groups, unions, fraternal or athletic groups, or [...] Answer Date Recorded PHQ-2 Score 0 06/06/2024 [facility] of Occupat ional Health - Occupational Stress [...] your living situation today? I have a [facility] place to live 07/27/2023 Education Answer Date Recorded What is the highest level of school you have completed or the highest degree you have received? Some college, no degree 05/23/2022 Comments No Sex and Gender Information Value Date Recorded Sex Assigned at Female 09/16/2017 3:29 PM CDT Legal Sex Female 7:11 AM PURCHASING ADMINISTRATOR Gender Identity Female 09/16/2017 3:29 PM CDT Sexual Orientation Straight 09/16/2017 3: 29 PM CDT documented as of this encounter Plan of Treatment Upcoming Encounters Date Type Department Care Team (Late st Contact Info) Description 08/09/2024 11:50 AM CDT Appointment Department of Radiology in [place], [place] 200 [place] [phone] Lilliam Ryan M.D. [address] [place] [address] documented as of this encounter Visit Diagnoses Not on filedocumented in this encounter Additional Health Concerns Assessment Noted Time PHQ-9 Depression Total Score: 5 08/08/19 21 9:41 AM CDT documented as of this encounter Care Teams Event Planner Relationship Specialty Start Date End Date Lilliam Ryan M.D. [address] [place] [address] PCP - General Family Medicine 05/29/16 documented as of this encounter
--- OUTSIDE RECORDS SUMMARY | 2024-07-29 22:54 | XMS_ITS | Encounter Summary ---
Author Organization [facility] Address [address] [place] [address] Care Team Providers Care Esl Professor Name Role Phone Lilliam Ryan M.D. Primary Care Provider [phone] Encounter Details Date Type Department Care Team (Late st Contact Info) Description 05/24/2024 Results Follow-Up Division of Pain Medicine in [place], [place] [address] [place] [phone] Anna Damon APRN, C.N.P., D.N.P. [address] [place] [phone] DX Thoracic Spine 2 Views Social History Tobacco Use Types Packs/Day Years Used Date Smoking Tobacco: Former Cigarettes 0.8 45 Q uit: 03/01/2024 Passive Smoke Exposure: Never Smokeless Tobacco: Never Alcohol Use Standard Drinks/Week Comments No 0 (1 standard drink = 0.6 oz pur e alcohol) [facility] Utilities Answer Date Recorded In the [...] How often do you attend chur or mosque services? More than 4 times per year [...] Answer Date Recorded PHQ-2 Score 0 06/06/2024 [facility] of Occupat ional Health - Occupational Stress [...] your living situation today? I have a [facility] place to live 07/27/2023 Education Answer Date Recorded What is the highest level of school you have completed or the highest degree you have received? Some college, no degree 05/23/2022 Comments No Sex and Gender Information Value Date Recorded Sex Assigned at Female 09/16/2017 3:29 PM CDT Legal Sex Female 7:11 AM PRODUCTION SUPPORT CONSULTANT Gender Identity Female 09/16/2017 3:29 PM CDT Sexual Orientation Straight 09/16/2017 3: 29 PM CDT documented as of this encounter Plan of Treatment Upcoming Encounters Date Type Department Care Team (Late st Contact Info) Description 08/09/2024 11:50 AM CDT Appointment Department of Radiology in [place], [place] [address] [place] [address] Lilliam Ryan M.D. [address] [place] [address] documented as of this encounter Visit Diagnoses Not on filedocumented in this encounter Additional Health Concerns Assessment Noted Time PHQ-9 Depression Total Score: 5 08/08/19 21 9:41 AM CDT documented as of this encounter Care Teams Esl Professor Relationship Specialty Start Date End Date Lilliam Ryan M.D. [address] [place] [address] PCP - General Family Medicine 05/29/16 documented as of this encounter
--- OUTSIDE RECORDS SUMMARY | 2024-07-29 22:54 | XMS_ITS | Encounter Summary ---
Author Organization [facility] Address [address] [place] [address] Care Team Providers Care Service Engineer Name Role Phone Lilliam Ryan M.D. Primary Care Provider [phone] Encounter Details Date Type Department Care Team (Latest Contact Info) Description 07/05/2024 11:00 AM CDT Diagnostic Department of Otorhinolaryngology in [place], [place] [address] [place] [phone] Mary Beth Clancy, LUIS, P.A.-C. [address] [place] [phone] Nikole Duggan Au.D. [address] [place] [phone] Conductive Hearing Loss Unilateral Right Ear With Unrestricted Hearing On The Contralateral Side (Primary Dx); Acute Serous Otitis Media Recurrent Right Social History Tobacco Use Types Packs/Day Years Used Date Smoking Tobacco: Former Cigarettes 0.8 45 Q uit: 03/01/2024 Passive Smoke Exposure: Never Smokeless Tobacco: Never Alcohol Use Standard Drinks/Week Comments Not Currently 0 (1 standard drink = 0.6 oz pur e alcohol) [facility] Utilities Answer Date Recorded In the past 12 months has [employer], gas, oil, or water company threatened [...] week 05/23/2022 How often do you attend [facility] or hindu services? More than 4 times per year 05/23/2022 Do you belong to any clubs o r organizations such as taoism groups, unions, fraternal or athletic groups, or [...] Answer Date Recorded PHQ-2 Score 0 06/06/2024 [facility] of Occupat ional Health - Occupational [...] your living situation today? I have a [facility] place to live 07/27/2023 Education Answer Date Recorded What is the highest level of school you have completed or the highest degree you have received? Some college, no degree 05/23/2022 Comments No Sex and Gender Information Value Date Recorded Sex Assigned at Female 09/16/2017 3:29 PM CDT Legal Sex Female 7:11 AM RACK WASHER Gender Identity Female 09/16/2017 3:29 PM CDT Sexual Orientation Straight 09/16/2017 3: 29 PM CDT documented as of this encounter Procedure Notes * Nikole Duggan Au.D. - 07/05/2024 10:53 AM CDT SUBJECTIVE CHIEF COMPLAINT / REASON FOR VISIT ?? Audiological evaluation prior to otolaryngology appointment HISTORY OF PRESENT COMPLAINT Deanna Lindsay is a 63-year-old patient who presents for audiological evaluation. 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 She reports recurrentear infections beginning around [place] time of last year. She endorses otalgia and aural fullness. She also reports tinnitus in her right ear when trying to sleep at nighttime. She denies dizziness, ear surgery, and extended loud noise exposure. OBJECTIVE See Audiological Evaluation Form. ASSESSMENT/PLAN ?? Right Ear: Moderate conductive hearing loss rising to normal hearing from 250-1000 Hz with normal hearing sloping to moderately severe sensorineural hearing loss from 1797-6650 Hz ?? Left Ear: Hearing is within normal limits 250-8000 Hz ?? Word recognition ability was assessed using recorded isophoneme stimuli, 20- word lists, and resulted in scores of 100% in the right ear and 100% in the left. ?? Tympanometry revealed normal ear canal volume and compliance in the left ear, (Type A). Seal could not be maintained in order to obtain tympanogram on the right side. CARE PLAN ?? Continue with otolaryngology appointment as scheduled. ?? Patient will return to clinic in 3-5 years for recheck of hearing or sooner should concerns for change arise. documented in this encounter Plan of Treatment Upcoming Encounters Date Type Department Care Team (Late st Contact Info) Description 08/09/2024 11:50 AM CDT Appointment Department of Radiology in [place], [place] [address] [place] [address] Lilliam Ryan M.D. [address] [place] [address] documented as of this encounter Procedures Procedure Name Priority Date/Time Associated Diagnosis Comments AUDIOGRAM Routine 07/05/2024 12:00 AM CDT Acute Serous Otitis Media Recurrent Right documented in this encounter Results * Audiogram (07/05/2024 12:00 AM CDT) 07/05/2024 Mary Beth HILLIARD, P.A.-C. AUDIOLOGY SERVICES ORDERABLES Final Result AUDIOLOGY AND AHD documented in this encounter Visit Diagnoses Diagnosis Conductive Hearing Loss Unilateral Right Ear With Unrestricted Hearing On The Contralateral Side- Primary Acute Serous Otitis Media Recurrent Right Screening Mammogram Breast Cancer documented in this encounter Additional Health Concerns Assessment Noted Time PHQ-9 Depression Total Score: 5 08/08/19 21 9:41 AM CDT documented as of this encounter Care Teams Service Engineer Relationship Specialty Start Date End Date Lilliam Ryan M.D. [address] [place] [phone] PCP - General Family Medicine 05/29/16 documented as of this encounter
--- OUTSIDE RECORDS SUMMARY | 2024-07-29 22:54 | XMS_ITS | Encounter Summary ---
Author Organization [facility] Address [address] [place] [address] Care Team Providers Care County Tax Assessor Name Role Phone Lilliam Ryan M.D. Primary Care Provider [phone] Encounter Details Date Type Department Care Team (Late st Contact Info) Description 07/02/2024 Patient Self-Triage [facility] Symptom Retail Loss Prevention Officer, Provider Social History Tobacco Use Types Packs/Day Years Used Date Smoking Tobacco: Former Cigarettes 0.8 45 Q uit: 03/01/2024 Passive Smoke Exposure: Never Smokeless Tobacco: Never Alcohol Use Standard Drinks/Week Comments Not Currently 0 (1 standard drink = 0.6 oz pur e alcohol) [facility] Utilities Answer Date Recorded In the past 12 months has [facility] [employer], gas, oil, or water [employer] threatened to shut off services in your [...] often do you attend chur ch or mosque services? More than 4 times per year 05/23/2022 Do you belong to any clubs o r organizations such as adventism groups, unions, fraternal or athletic groups, or [...] Answer Date Recorded PHQ-2 Score 0 06/06/2024 [facility] of Occupat ional Health - Occupational [...] your living situation today? I have a [facility] place to live 07/27/2023 Education Answer Date Recorded What is the highest level of school you have completed or the highest degree you have received? Some college, no degree 05/23/2022 Comments No Sex and Gender Information Value Date Recorded Sex Assigned at Female 09/16/2017 3:29 PM CDT Legal Sex Female 7:11 AM ORTHODONTIC TREATMENT COORDINATOR Gender Identity Female 09/16/2017 3:29 PM CDT Sexual Orientation Straight 09/16/2017 3: 29 PM CDT documented as of this encounter Plan of Treatment Upcoming Encounters Date Type Department Care Team (Late st Contact Info) Description 08/09/2024 11:50 AM CDT Appointment Department of Radiology in [place], [place] [address] [place] [phone] Lilliam Ryan M.D. [address] [place] [phone] documented as of this encounter Visit Diagnoses Not on filedocumented in this encounter Additional Health Concerns Assessment Noted Time PHQ-9 Depression Total Score: 5 08/08/19 21 9:41 AM CDT documented as of this encounter Care Teams County Tax Assessor Relationship Specialty Start Date End Date Lilliam Ryan M.D. [address] [place] [phone] PCP - General Family Medicine 05/29/16 documented as of this encounter
== END 2024-07-29 22:49 | disposition home or self-care (01) ==
LOC: ED 22:47
PROVIDERS: Emergency Provider Emergency Medicine Emergency Medical Services
DX: S01.112A Laceration without foreign body of left eyelid and periocular area, initial encounter (principal)
CPT/HCPCS: 12011; 70450; 99283; 99284; J2003